=== PATIENT | female | born 1950 | race Caucasian/White ===

== ENCOUNTER → 2018-04-18 | Outpatient (CLI) | payer OTHER, BC | LOC: HYPER 06:40 | DX: E11.621 Type 2 diabetes mellitus with foot ulcer (principal); L97.521 Non-pressure chronic ulcer of other part of left foot limited to breakdown of skin; I25.10 Atherosclerotic heart disease of native coronary artery without angina pectoris; K21.9 Gastro-esophageal reflux disease without esophagitis; E11.52 Type 2 diabetes mellitus with diabetic peripheral angiopathy with gangrene; E78.5 Hyperlipidemia, unspecified; M19.90 Unspecified osteoarthritis, unspecified site; F17.200 Nicotine dependence, unspecified, uncomplicated; Z89.412 Acquired absence of left great toe; Z89.422 Acquired absence of other left toe(s); Z79.4 Long term (current) use of insulin ==

== ENCOUNTER → 2018-05-02 | Outpatient (CLI) | payer OTHER, BC | LOC: HYPER 07:04 | DX: E11.621 Type 2 diabetes mellitus with foot ulcer (principal); L97.521 Non-pressure chronic ulcer of other part of left foot limited to breakdown of skin; I25.10 Atherosclerotic heart disease of native coronary artery without angina pectoris; K21.9 Gastro-esophageal reflux disease without esophagitis; I10 Essential (primary) hypertension; E78.5 Hyperlipidemia, unspecified; E11.52 Type 2 diabetes mellitus with diabetic peripheral angiopathy with gangrene; I96 Gangrene, not elsewhere classified; M19.90 Unspecified osteoarthritis, unspecified site; F17.210 Nicotine dependence, cigarettes, uncomplicated; Z89.412 Acquired absence of left great toe; Z89.422 Acquired absence of other left toe(s); Z79.4 Long term (current) use of insulin ==

== ENCOUNTER → 2018-05-16 | Outpatient (CLI) | payer OTHER, BC | LOC: HYPER 06:44 | DX: E11.621 Type 2 diabetes mellitus with foot ulcer (principal); L97.521 Non-pressure chronic ulcer of other part of left foot limited to breakdown of skin; E11.52 Type 2 diabetes mellitus with diabetic peripheral angiopathy with gangrene; I96 Gangrene, not elsewhere classified; I10 Essential (primary) hypertension; L84 Corns and callosities; I25.10 Atherosclerotic heart disease of native coronary artery without angina pectoris; K21.9 Gastro-esophageal reflux disease without esophagitis; E78.5 Hyperlipidemia, unspecified; M19.90 Unspecified osteoarthritis, unspecified site; F17.200 Nicotine dependence, unspecified, uncomplicated; Z89.412 Acquired absence of left great toe; Z89.422 Acquired absence of other left toe(s); Z79.4 Long term (current) use of insulin; Z85.828 Personal history of other malignant neoplasm of skin ==

== ENCOUNTER → 2018-05-28 | Outpatient (CLI) | payer OTHER, BC | LOC: HYPER 07:27 | DX: E11.621 Type 2 diabetes mellitus with foot ulcer (principal); L97.521 Non-pressure chronic ulcer of other part of left foot limited to breakdown of skin; E11.52 Type 2 diabetes mellitus with diabetic peripheral angiopathy with gangrene; I96 Gangrene, not elsewhere classified; L84 Corns and callosities; I25.10 Atherosclerotic heart disease of native coronary artery without angina pectoris; E78.5 Hyperlipidemia, unspecified; K21.9 Gastro-esophageal reflux disease without esophagitis; M19.90 Unspecified osteoarthritis, unspecified site; F17.200 Nicotine dependence, unspecified, uncomplicated; Z79.4 Long term (current) use of insulin; Z89.412 Acquired absence of left great toe; Z89.422 Acquired absence of other left toe(s) ==

== ENCOUNTER → 2018-06-26 | Outpatient (CLI) | payer OTHER, BC | LOC: HYPER 07:01 | DX: E11.621 Type 2 diabetes mellitus with foot ulcer (principal); L97.521 Non-pressure chronic ulcer of other part of left foot limited to breakdown of skin; L84 Corns and callosities; I25.10 Atherosclerotic heart disease of native coronary artery without angina pectoris; K21.9 Gastro-esophageal reflux disease without esophagitis; I10 Essential (primary) hypertension; E78.5 Hyperlipidemia, unspecified; I96 Gangrene, not elsewhere classified; E11.52 Type 2 diabetes mellitus with diabetic peripheral angiopathy with gangrene; M19.90 Unspecified osteoarthritis, unspecified site; F17.210 Nicotine dependence, cigarettes, uncomplicated; Z89.412 Acquired absence of left great toe; Z89.422 Acquired absence of other left toe(s); Z79.4 Long term (current) use of insulin ==

== ENCOUNTER → 2018-07-17 | Outpatient (CLI) | payer OTHER, BC | LOC: HYPER 06:58 | DX: E11.621 Type 2 diabetes mellitus with foot ulcer (principal); L97.521 Non-pressure chronic ulcer of other part of left foot limited to breakdown of skin; E11.52 Type 2 diabetes mellitus with diabetic peripheral angiopathy with gangrene; I96 Gangrene, not elsewhere classified; I10 Essential (primary) hypertension; L84 Corns and callosities; I25.10 Atherosclerotic heart disease of native coronary artery without angina pectoris; K21.9 Gastro-esophageal reflux disease without esophagitis; E78.5 Hyperlipidemia, unspecified; M19.90 Unspecified osteoarthritis, unspecified site; F17.200 Nicotine dependence, unspecified, uncomplicated; Z89.412 Acquired absence of left great toe; Z89.422 Acquired absence of other left toe(s); Z79.4 Long term (current) use of insulin; Z79.84 Long term (current) use of oral hypoglycemic drugs ==

== ENCOUNTER → 2018-09-04 | Outpatient (CLI) | payer OTHER, BC | LOC: HYPER 06:58 | DX: E11.621 Type 2 diabetes mellitus with foot ulcer (principal); L97.521 Non-pressure chronic ulcer of other part of left foot limited to breakdown of skin; E11.52 Type 2 diabetes mellitus with diabetic peripheral angiopathy with gangrene; I96 Gangrene, not elsewhere classified; M19.90 Unspecified osteoarthritis, unspecified site; E78.5 Hyperlipidemia, unspecified; L84 Corns and callosities; I25.10 Atherosclerotic heart disease of native coronary artery without angina pectoris; K21.9 Gastro-esophageal reflux disease without esophagitis; I10 Essential (primary) hypertension; F17.200 Nicotine dependence, unspecified, uncomplicated; Z79.4 Long term (current) use of insulin; Z89.412 Acquired absence of left great toe; Z89.422 Acquired absence of other left toe(s); Z79.84 Long term (current) use of oral hypoglycemic drugs ==

== ENCOUNTER → 2018-10-02 | Outpatient (CLI) | payer OTHER, BC | LOC: HYPER 07:17 | DX: E11.621 Type 2 diabetes mellitus with foot ulcer (principal); L97.521 Non-pressure chronic ulcer of other part of left foot limited to breakdown of skin; L84 Corns and callosities; E11.52 Type 2 diabetes mellitus with diabetic peripheral angiopathy with gangrene; E78.5 Hyperlipidemia, unspecified; I25.10 Atherosclerotic heart disease of native coronary artery without angina pectoris; I10 Essential (primary) hypertension; I96 Gangrene, not elsewhere classified; K21.9 Gastro-esophageal reflux disease without esophagitis; M19.90 Unspecified osteoarthritis, unspecified site; F17.200 Nicotine dependence, unspecified, uncomplicated; Z79.84 Long term (current) use of oral hypoglycemic drugs; Z89.412 Acquired absence of left great toe; Z89.422 Acquired absence of other left toe(s); Z79.4 Long term (current) use of insulin ==

== ENCOUNTER → 2018-10-30 | Outpatient (CLI) | payer OTHER, BC | LOC: HYPER 10-29 11:03 | DX: E11.621 Type 2 diabetes mellitus with foot ulcer (principal); L97.521 Non-pressure chronic ulcer of other part of left foot limited to breakdown of skin; S90.425A Blister (nonthermal), left lesser toe(s), initial encounter; L84 Corns and callosities; E11.52 Type 2 diabetes mellitus with diabetic peripheral angiopathy with gangrene; I96 Gangrene, not elsewhere classified; E78.5 Hyperlipidemia, unspecified; I25.10 Atherosclerotic heart disease of native coronary artery without angina pectoris; I10 Essential (primary) hypertension; K21.9 Gastro-esophageal reflux disease without esophagitis; M19.90 Unspecified osteoarthritis, unspecified site; F17.200 Nicotine dependence, unspecified, uncomplicated; Z89.422 Acquired absence of other left toe(s); Z89.412 Acquired absence of left great toe; Z79.84 Long term (current) use of oral hypoglycemic drugs; Z79.4 Long term (current) use of insulin; X58.XXXA Exposure to other specified factors, initial encounter; Y93.89 Activity, other specified; Y92.89 Other specified places as the place of occurrence of the external cause; Y99.8 Other external cause status ==

== ENCOUNTER → 2018-11-21 | Outpatient (CLI) | payer OTHER, BC | LOC: HYPER 06:56 | DX: E11.621 Type 2 diabetes mellitus with foot ulcer (principal); L97.521 Non-pressure chronic ulcer of other part of left foot limited to breakdown of skin; L84 Corns and callosities; E11.52 Type 2 diabetes mellitus with diabetic peripheral angiopathy with gangrene; I96 Gangrene, not elsewhere classified; E78.5 Hyperlipidemia, unspecified; I25.10 Atherosclerotic heart disease of native coronary artery without angina pectoris; I10 Essential (primary) hypertension; K21.9 Gastro-esophageal reflux disease without esophagitis; M19.90 Unspecified osteoarthritis, unspecified site; F17.200 Nicotine dependence, unspecified, uncomplicated; Z89.422 Acquired absence of other left toe(s); Z89.412 Acquired absence of left great toe; Z79.4 Long term (current) use of insulin; Z79.84 Long term (current) use of oral hypoglycemic drugs ==

== ENCOUNTER → 2019-01-24 | Outpatient (CLI) | payer OTHER, BC | LOC: HYPER 06:56 | DX: E11.621 Type 2 diabetes mellitus with foot ulcer (principal); L97.521 Non-pressure chronic ulcer of other part of left foot limited to breakdown of skin; L84 Corns and callosities; E11.52 Type 2 diabetes mellitus with diabetic peripheral angiopathy with gangrene; I96 Gangrene, not elsewhere classified; E78.5 Hyperlipidemia, unspecified; I25.10 Atherosclerotic heart disease of native coronary artery without angina pectoris; I10 Essential (primary) hypertension; K21.9 Gastro-esophageal reflux disease without esophagitis; M19.90 Unspecified osteoarthritis, unspecified site; F17.200 Nicotine dependence, unspecified, uncomplicated; Z89.422 Acquired absence of other left toe(s); Z89.412 Acquired absence of left great toe; Z79.4 Long term (current) use of insulin; Z79.84 Long term (current) use of oral hypoglycemic drugs ==

== ENCOUNTER → 2019-02-21 | Outpatient (CLI) | payer OTHER, BC | LOC: HYPER 06:48 | DX: E11.621 Type 2 diabetes mellitus with foot ulcer (principal); L97.521 Non-pressure chronic ulcer of other part of left foot limited to breakdown of skin; L84 Corns and callosities; E11.52 Type 2 diabetes mellitus with diabetic peripheral angiopathy with gangrene; I96 Gangrene, not elsewhere classified; E78.5 Hyperlipidemia, unspecified; I25.10 Atherosclerotic heart disease of native coronary artery without angina pectoris; I10 Essential (primary) hypertension; K21.9 Gastro-esophageal reflux disease without esophagitis; M19.90 Unspecified osteoarthritis, unspecified site; F17.200 Nicotine dependence, unspecified, uncomplicated; Z89.412 Acquired absence of left great toe; Z89.422 Acquired absence of other left toe(s); Z79.4 Long term (current) use of insulin; Z79.84 Long term (current) use of oral hypoglycemic drugs ==

== ENCOUNTER → 2019-03-14 | Outpatient (CLI) | payer OTHER, BC | LOC: HYPER 06:47 | DX: E11.621 Type 2 diabetes mellitus with foot ulcer (principal); L97.521 Non-pressure chronic ulcer of other part of left foot limited to breakdown of skin; L84 Corns and callosities; E11.52 Type 2 diabetes mellitus with diabetic peripheral angiopathy with gangrene; I96 Gangrene, not elsewhere classified; E78.5 Hyperlipidemia, unspecified; I25.10 Atherosclerotic heart disease of native coronary artery without angina pectoris; I10 Essential (primary) hypertension; K21.9 Gastro-esophageal reflux disease without esophagitis; M19.90 Unspecified osteoarthritis, unspecified site; F17.200 Nicotine dependence, unspecified, uncomplicated; Z89.412 Acquired absence of left great toe; Z89.422 Acquired absence of other left toe(s); Z79.84 Long term (current) use of oral hypoglycemic drugs ==

== ENCOUNTER → 2019-04-17 | Outpatient (CLI) | payer OTHER, BC | LOC: HYPER 04-11 12:13 | DX: E11.621 Type 2 diabetes mellitus with foot ulcer (principal); L97.521 Non-pressure chronic ulcer of other part of left foot limited to breakdown of skin; L84 Corns and callosities; E11.52 Type 2 diabetes mellitus with diabetic peripheral angiopathy with gangrene; I96 Gangrene, not elsewhere classified; E78.5 Hyperlipidemia, unspecified; I25.10 Atherosclerotic heart disease of native coronary artery without angina pectoris; I10 Essential (primary) hypertension; K21.9 Gastro-esophageal reflux disease without esophagitis; M19.90 Unspecified osteoarthritis, unspecified site; F17.200 Nicotine dependence, unspecified, uncomplicated; Z89.412 Acquired absence of left great toe; Z89.422 Acquired absence of other left toe(s); Z79.84 Long term (current) use of oral hypoglycemic drugs ==

== ENCOUNTER → 2019-05-15 | Outpatient (CLI) | payer OTHER, BC | LOC: HYPER 06:48 | DX: E11.621 Type 2 diabetes mellitus with foot ulcer (principal); L97.521 Non-pressure chronic ulcer of other part of left foot limited to breakdown of skin; E11.52 Type 2 diabetes mellitus with diabetic peripheral angiopathy with gangrene; I96 Gangrene, not elsewhere classified; L84 Corns and callosities; I10 Essential (primary) hypertension; I25.10 Atherosclerotic heart disease of native coronary artery without angina pectoris; K21.9 Gastro-esophageal reflux disease without esophagitis; E78.5 Hyperlipidemia, unspecified; M19.90 Unspecified osteoarthritis, unspecified site; F17.200 Nicotine dependence, unspecified, uncomplicated; Z79.84 Long term (current) use of oral hypoglycemic drugs ==

== ENCOUNTER → 2019-06-19 | Outpatient (CLI) | payer OTHER, BC | LOC: HYPER 06:26 | DX: E11.621 Type 2 diabetes mellitus with foot ulcer (principal); L97.521 Non-pressure chronic ulcer of other part of left foot limited to breakdown of skin; L84 Corns and callosities; I25.10 Atherosclerotic heart disease of native coronary artery without angina pectoris; E11.51 Type 2 diabetes mellitus with diabetic peripheral angiopathy without gangrene; K21.9 Gastro-esophageal reflux disease without esophagitis; E78.5 Hyperlipidemia, unspecified; M19.90 Unspecified osteoarthritis, unspecified site; F17.200 Nicotine dependence, unspecified, uncomplicated; Z89.412 Acquired absence of left great toe; Z79.84 Long term (current) use of oral hypoglycemic drugs ==

== ENCOUNTER → 2019-07-10 | Outpatient (CLI) | payer OTHER, BC | LOC: HYPER 07:01 | DX: E11.621 Type 2 diabetes mellitus with foot ulcer (principal); L97.521 Non-pressure chronic ulcer of other part of left foot limited to breakdown of skin; E11.52 Type 2 diabetes mellitus with diabetic peripheral angiopathy with gangrene; I96 Gangrene, not elsewhere classified; I10 Essential (primary) hypertension; E78.5 Hyperlipidemia, unspecified; I25.10 Atherosclerotic heart disease of native coronary artery without angina pectoris; L84 Corns and callosities; K21.9 Gastro-esophageal reflux disease without esophagitis; M19.90 Unspecified osteoarthritis, unspecified site; F17.200 Nicotine dependence, unspecified, uncomplicated; Z79.84 Long term (current) use of oral hypoglycemic drugs; Z89.412 Acquired absence of left great toe; Z89.422 Acquired absence of other left toe(s) ==

== ENCOUNTER → 2019-07-31 | Outpatient (CLI) | payer OTHER, BC | LOC: HYPER 06:56 | DX: E11.621 Type 2 diabetes mellitus with foot ulcer (principal); L97.522 Non-pressure chronic ulcer of other part of left foot with fat layer exposed; E11.52 Type 2 diabetes mellitus with diabetic peripheral angiopathy with gangrene; I96 Gangrene, not elsewhere classified; L84 Corns and callosities; I10 Essential (primary) hypertension; I25.10 Atherosclerotic heart disease of native coronary artery without angina pectoris; K21.9 Gastro-esophageal reflux disease without esophagitis; E78.5 Hyperlipidemia, unspecified; M19.90 Unspecified osteoarthritis, unspecified site; F17.200 Nicotine dependence, unspecified, uncomplicated; Z89.422 Acquired absence of other left toe(s); Z79.84 Long term (current) use of oral hypoglycemic drugs ==

== ENCOUNTER → 2019-08-21 | Outpatient (CLI) | payer OTHER, BC | LOC: HYPER 06:47 | DX: E11.621 Type 2 diabetes mellitus with foot ulcer (principal); L97.521 Non-pressure chronic ulcer of other part of left foot limited to breakdown of skin; E11.40 Type 2 diabetes mellitus with diabetic neuropathy, unspecified; E11.52 Type 2 diabetes mellitus with diabetic peripheral angiopathy with gangrene; I96 Gangrene, not elsewhere classified; L84 Corns and callosities; I25.10 Atherosclerotic heart disease of native coronary artery without angina pectoris; K21.9 Gastro-esophageal reflux disease without esophagitis; I10 Essential (primary) hypertension; E78.5 Hyperlipidemia, unspecified; M19.90 Unspecified osteoarthritis, unspecified site; F17.200 Nicotine dependence, unspecified, uncomplicated; Z89.412 Acquired absence of left great toe; Z89.422 Acquired absence of other left toe(s); Z79.84 Long term (current) use of oral hypoglycemic drugs ==

== ENCOUNTER → 2019-08-30 | Outpatient (CLI) | payer OTHER, BC | LOC: ULTRA 10:22 | DX: M79.604 Pain in right leg (principal); M79.89 Other specified soft tissue disorders ==

== ENCOUNTER → 2019-09-19 | Outpatient (CLI) | payer OTHER, BC | LOC: HYPER 09-11 17:01 | DX: E11.621 Type 2 diabetes mellitus with foot ulcer (principal); L97.521 Non-pressure chronic ulcer of other part of left foot limited to breakdown of skin; E11.52 Type 2 diabetes mellitus with diabetic peripheral angiopathy with gangrene; I96 Gangrene, not elsewhere classified; L84 Corns and callosities; I25.10 Atherosclerotic heart disease of native coronary artery without angina pectoris; K21.9 Gastro-esophageal reflux disease without esophagitis; I10 Essential (primary) hypertension; E78.5 Hyperlipidemia, unspecified; M19.90 Unspecified osteoarthritis, unspecified site; Z89.412 Acquired absence of left great toe; Z79.84 Long term (current) use of oral hypoglycemic drugs; Z89.422 Acquired absence of other left toe(s); F17.200 Nicotine dependence, unspecified, uncomplicated ==

== ENCOUNTER → 2019-10-10 | Outpatient (CLI) | payer OTHER, BC | LOC: HYPER 10:00 | DX: E11.621 Type 2 diabetes mellitus with foot ulcer (principal); L97.522 Non-pressure chronic ulcer of other part of left foot with fat layer exposed; E11.52 Type 2 diabetes mellitus with diabetic peripheral angiopathy with gangrene; I96 Gangrene, not elsewhere classified; E11.51 Type 2 diabetes mellitus with diabetic peripheral angiopathy without gangrene; I10 Essential (primary) hypertension; L84 Corns and callosities; E78.5 Hyperlipidemia, unspecified; I25.10 Atherosclerotic heart disease of native coronary artery without angina pectoris; K21.9 Gastro-esophageal reflux disease without esophagitis; M19.90 Unspecified osteoarthritis, unspecified site; F17.200 Nicotine dependence, unspecified, uncomplicated; Z79.84 Long term (current) use of oral hypoglycemic drugs; Z89.412 Acquired absence of left great toe; Z89.421 Acquired absence of other right toe(s) ==

== ENCOUNTER → 2019-10-11 | Outpatient (CLI) | payer OTHER, BC | LOC: MRI 10:10 | DX: L97.522 Non-pressure chronic ulcer of other part of left foot with fat layer exposed (principal); M86.8X7 Other osteomyelitis, ankle and foot ==

== ENCOUNTER → 2019-10-31 | Outpatient (CLI) | payer OTHER, BC | LOC: HYPER 08:58 | DX: E11.621 Type 2 diabetes mellitus with foot ulcer (principal); L97.521 Non-pressure chronic ulcer of other part of left foot limited to breakdown of skin; E11.52 Type 2 diabetes mellitus with diabetic peripheral angiopathy with gangrene; I96 Gangrene, not elsewhere classified; L84 Corns and callosities; I25.10 Atherosclerotic heart disease of native coronary artery without angina pectoris; I10 Essential (primary) hypertension; E78.5 Hyperlipidemia, unspecified; K21.9 Gastro-esophageal reflux disease without esophagitis; M19.90 Unspecified osteoarthritis, unspecified site; F17.200 Nicotine dependence, unspecified, uncomplicated; Z89.412 Acquired absence of left great toe; Z79.84 Long term (current) use of oral hypoglycemic drugs; Z89.422 Acquired absence of other left toe(s) ==

== ENCOUNTER 2019-11-15 08:34 | Outpatient (CLI) | payer OTHER, BC | END 2019-11-15 12:28 | disposition home or self-care (01) | LOC: ULTRA 08:34 | DX: E11.621 Type 2 diabetes mellitus with foot ulcer (principal); L97.522 Non-pressure chronic ulcer of other part of left foot with fat layer exposed; E11.40 Type 2 diabetes mellitus with diabetic neuropathy, unspecified ==

== ENCOUNTER → 2019-12-05 | Outpatient (CLI) | payer OTHER, BC | LOC: HYPER 10:25 | DX: E11.621 Type 2 diabetes mellitus with foot ulcer (principal); L97.521 Non-pressure chronic ulcer of other part of left foot limited to breakdown of skin; E11.52 Type 2 diabetes mellitus with diabetic peripheral angiopathy with gangrene; I96 Gangrene, not elsewhere classified; L84 Corns and callosities; E11.69 Type 2 diabetes mellitus with other specified complication; E11.40 Type 2 diabetes mellitus with diabetic neuropathy, unspecified; I25.10 Atherosclerotic heart disease of native coronary artery without angina pectoris; K21.9 Gastro-esophageal reflux disease without esophagitis; I10 Essential (primary) hypertension; E78.5 Hyperlipidemia, unspecified; M19.90 Unspecified osteoarthritis, unspecified site; F17.210 Nicotine dependence, cigarettes, uncomplicated; Z79.84 Long term (current) use of oral hypoglycemic drugs; Z89.422 Acquired absence of other left toe(s); Z89.412 Acquired absence of left great toe ==

== ENCOUNTER → 2019-12-26 | Outpatient (CLI) | payer OTHER, BC | LOC: HYPER 09:13 | DX: E11.621 Type 2 diabetes mellitus with foot ulcer (principal); L97.521 Non-pressure chronic ulcer of other part of left foot limited to breakdown of skin; E11.52 Type 2 diabetes mellitus with diabetic peripheral angiopathy with gangrene; I96 Gangrene, not elsewhere classified; E11.40 Type 2 diabetes mellitus with diabetic neuropathy, unspecified; L84 Corns and callosities; E11.69 Type 2 diabetes mellitus with other specified complication; I25.10 Atherosclerotic heart disease of native coronary artery without angina pectoris; K21.9 Gastro-esophageal reflux disease without esophagitis; I10 Essential (primary) hypertension; E78.5 Hyperlipidemia, unspecified; M19.90 Unspecified osteoarthritis, unspecified site; F17.290 Nicotine dependence, other tobacco product, uncomplicated; Z79.84 Long term (current) use of oral hypoglycemic drugs; Z89.412 Acquired absence of left great toe ==

== ENCOUNTER → 2020-01-16 | Outpatient (CLI) | payer OTHER, BC | LOC: HYPER 09:16 | DX: E11.621 Type 2 diabetes mellitus with foot ulcer (principal); L97.521 Non-pressure chronic ulcer of other part of left foot limited to breakdown of skin; L84 Corns and callosities; E11.52 Type 2 diabetes mellitus with diabetic peripheral angiopathy with gangrene; I96 Gangrene, not elsewhere classified; E11.40 Type 2 diabetes mellitus with diabetic neuropathy, unspecified; I25.10 Atherosclerotic heart disease of native coronary artery without angina pectoris; K21.9 Gastro-esophageal reflux disease without esophagitis; E78.5 Hyperlipidemia, unspecified; I10 Essential (primary) hypertension; M19.90 Unspecified osteoarthritis, unspecified site; F17.290 Nicotine dependence, other tobacco product, uncomplicated; Z79.84 Long term (current) use of oral hypoglycemic drugs; Z89.412 Acquired absence of left great toe; Z89.422 Acquired absence of other left toe(s) ==

== ENCOUNTER 2020-04-02 10:41 | Inpatient (IN) | payer OTHER, BC ==
[~2020-04-02] VITALS: Ht 175.3 cm; Wt 87.5 kg
--- NOTE | ~2020-04-02 | EMS ---
[address] [address] EMS Patient Care Report Name: BERYL ESCAMILLA Room #: [facility].Cuong#: [id number] Admission: Attend Phys: Discharge: Date of : 52 Report #: [id number] THIS REPORT FOR: //name// Report Transmitted: 04/02/2020 10:15 EMS Care Summary [facility] MED-ACT Incident [id number] @ 04/02/2020 10:12 Incident Location [address] [place] [address] Patient BERYL ESCAMILLA Female, 69 Years 1950 Patient Address [address] [place] [address] Patient History Diabetes,Hypertension (HTN), Patient Allergies No known allergies, Patient Medications Metformin, Glimepiride, Chief Complaint no complaint Disposition Transported No Lights/[place] Dis[place] Reason Sick Person Transported To [facility] Narrative Arrived on scene to find a 68 year old female patient that was sitting in her living room. Patient is alert and oriented with a GCS of 15 with no complaints. [address] [address] EMS Patient Care Report Name: BERYL ESCAMILLA Room #: [facility].#: [id number] Admission: Attend Phys: Discharge: Date of : 52 Report #: [id number] A home health nurse was at the door and explained that she came and noticed that she has an infected second toe and stated " i want her transported to the hospital for further evaluation" Patient explained that she did not really want to go to the hospital and that she has no pain or complaints. the home health nurse kept encouraging the patient and said " you will receive better care in the ED". It was asked of the patient if there were other treatments that have been done prior to this, to which she said there has not been and she has been with home health for a month. Patient denies any pain, complaints or assessment of her toe and said, "I guess ill go, as long as i can get a ride back" it was explained to her that we can only transport to the hospital one way. patient consented to transport was assisted to the [facility] and placed in POC monitored en route and report was given to ED physician at bed side. Initial Vitals @10:35P: 118,R: 18,BP: 155/67,Pain: 0/10,GCS: 15,Glucose: 211,SpO2: 97,Revised Trauma: 12,NC Suspected: false @10:26P: 112,R: 18,BP: 155/86,Pain: 0/10,GCS: 15,SpO2: 97,Revised Trauma: 12, Assessments @10:20MENTAL:Person Oriented,Time Oriented,Event Oriented,Place Oriented,SKIN:HEENT:LUNG SOUNDS:ABDOMEN:PELVIS//GI:EXTREMITIES:Capillary Refill: Right Upper: < 2 Sec,Capillary Refill: Left Upper: < 2 Sec,PULSE:Radial: 2+ Normal,NEURO: Impression No Complaints or Injury/Illness Noted Timeline 10:10,Call Received 10:10,Psap Call 10:12,Dispatched 10:13,En Route 10:17,On Scene 10:18,At Patient 10:26,Depart Scene 10:26,BP: 155/86 M,PULSE: 112,RR: 18 R,SPO2: 97 Ox,ETCO2: ,BG: ,PAIN: 0,GCS: 15, 10:35,BP: 155/67 M,PULSE: 118,RR: 18 R,SPO2: 97 Ox,ETCO2: ,B,PAIN: 0,GCS: 15, 10:38,At Destination [facility] [address] [place] [address] EMS Patient Care Report Name: BERYL ESCAMILLA Valentina Room #: [facility].#: [id number] Admission: Attend Phys: Discharge: Date of : 51 Report #: [id number] 11:00,Call Closed Disclaimer v1.1 Copyright 2020 [employer] This EMS Care Summary contains data elements from the applicable legal record (which may be displayed differently). It is designed to provide pertinent information for the following purposes: continuity of care, clinical quality, and state data reporting. The complete legal record is available to ED staff and administrators of the receiving hospital in [employer]'s Patient Tracker. All data is provided "as is."
[2020-04-02 10:43] VITALS: BP 144/92
[2020-04-02 11:15] LABS: ABSOLUTE NEUTROPHILS 9.1 thou/uL (1.4-8.2); BASOPHILS 0.2 % (0.0-2.0); EOSINOPHILS 0.4 % (0.0-3.0); HEMATOCRIT 44.3 % (37.0-47.0); HEMOGLOBIN 14.8 gm/dL (12.0-15.0); MCH 31.2 pg (26.0-34.0); MCHC 33.5 g/dL (28.0-37.0); MCV 92.9 fL (80.0-100.0); MONOCYTES 5.1 % (1.0-8.0); PLATELET COUNT 288 thou/uL (150-400); POLYS 78.3 % (36.0-66.0); RBC 4.76 mil/uL (4.20-5.00); RDW 14.6 % (10.5-14.5); WBC 11.6 thou/uL (4.0-11.0)
[2020-04-02 11:28] LABS: CALCIUM 9.1 mg/dL (8.5-10.1); CREATININE 1.1 mg/dL (0.6-1.0); POTASSIUM 3.7 mmol/L (3.5-5.1)
[2020-04-02 11:34] LABS: ALBUMIN 3.2 g/dL (3.4-5.0); TOTAL BILIRUBIN 0.2 mg/dL (<0.1-1.0); TOTAL PROTEIN 7.2 g/dL (6.4-8.2)
[2020-04-02 14:33] VITALS: BP 168/89
[2020-04-02 14:40] VITALS: BP 159/101
[2020-04-02 15:32] VITALS: BP 149/79
[2020-04-02 19:45] VITALS: BP 150/67
[2020-04-03 03:40] VITALS: BP 159/68
--- NOTE | 2020-04-03 07:43 | EKG ---
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1950 Requested By: Fidencio Seay Order Number: [id number] MD: Hardik Henderson Measurements Intervals Bypro Rate: 100 P: -23 UT: 186 QRS: -22 QRSD: 95 T: 124 QT: 351 QTc: 453 Interpretive Statements Sinus tachycardia Atrial premature complexes Inferior infarct, old No previous ECG available for comparison Electronically Signed On 04-03-2020 7:41:37 CDT by Hardik Henderson [email or web address] <ELECTRONICALLY SIGNED> By: Hardik Henderson MD, FACC 04/03/20 0741 1052 1052 Hardik Henderson MD, MERGED WITH [facility] /EPI
[2020-04-03 08:00] VITALS: BP 152/73
[2020-04-03] MEDS ORDERED: ASA81BEC PO (12:22)
[2020-04-03] MEDS ORDERED: DAILY MULTIVIT1 EAC2 PO (12:23)
[2020-04-03] MEDS ORDERED: BYSTOLIC10 MG PO (12:23)
[2020-04-03] MEDS ORDERED: LIPITOR 20 MG T20 M1 PO (12:23)
[2020-04-03] MEDS ORDERED: AMARYL4 MG PO (12:24)
[2020-04-03] MEDS ORDERED: AVAPRO 150 MG150 M1 PO (12:24)
[2020-04-03] MEDS ORDERED: FUROSEMIDE 20 M20 MG PO (12:24)
[2020-04-03] MEDS ORDERED: LORAZEPAM 0.50.5 MG PO (12:25)
[2020-04-03] MEDS ORDERED: GLUCOPHAGE1000 MG PO (12:25)
[2020-04-03] MEDS ORDERED: JARDIANCE10 MG PO (12:25)
[2020-04-03] MEDS ORDERED: TRAMADOL100 MG PO (12:26)
--- NOTE | 2020-04-03 14:50 | HC ---
[facility] [place] [address] [place] [address] CONSULTATION Name: BERYL ESCAMILLA Room #: 439-P ADM IN M.R.#: [id number] Admission: 04/02/20 Attend Phys: Noah Molina MD Discharge: Date of : 51 Report #: [id number] THIS REPORT FOR: cc: OLIVIA - Family physician unknown OLIVIA - Family physician unknown Nery Cooper DPM ~ CC: [facility] unknown Noah Molina DATE OF SERVICE: 04/03/2020 HISTORY OF PRESENT ILLNESS: This is a 69-year-old diabetic female with a history of hypertension, hyperlipidemia, coronary artery disease, and dementia, who was admitted from the Emergency Room yesterday. She has an infection with necrosis of her left second toe. At her admission, she has been followed by myself, Dr. Cooper as an outpatient for the toe, and also Dr. Moshe Corbin Infectious Disease, and Dr Foster/Cordelia with the [facility] wound clinic. She has had multiple primary care physicians in the last few years. The patient is a poor historian and in the past when seen as an outpatient, I recommended amputation of the left second toe. When she represented a week later, she had forgotten this conversation. The second toe has had confirmed osteomyelitis to the distal end by MRI in the past. She has adamantly refused amputation as an outpatient in the past, although the end of toe was not necrotic in the past. Currently she denies any fever, chills, nausea, vomiting at this time. She denies any pain to the toe, but she has significant neuropathy. She is being worked up by Psychology for evaluation of dementia and decision making. For her labs, her white blood cell was mildly elevated on admission, in addition to a CRP of 16.9. Her albumin is slightly low at 3.2. Her x-ray yesterday again confirms that there is bone involvement of the distal end of the left second toe. PHYSICAL EXAMINATION: EXTREMITIES: On the left lower extremity, there is a darkened necrotic blister to left second toe, with debridement today underlying direct probing to bone and complete necrosis of the middle and distal phalanx of the left second toe. There is no abscess, fluctuance. There is no active pus. There is no malodor. There is no ascending cellulitis. There is edema overall to the entire left foot, but she has a history of Charcot. In addition, she has amputation of the left first and fifth rays. Foot is warm to touch overall, but coolness noted to the distal ends of the toes, especially the left second. Significant loss of protective sensation to bilateral lower extremities. No other breaks in the skin to [address] [address] CONSULTATION Name: BERYL ESCAMILLA Room #: 439-P [facility] IN M.R.#: [id number] Admission: 04/02/20 Attend Phys: Noah Molina MD Discharge: Date of : 51 Report #: [id number] bilateral foot or ankle. ASSESSMENT AND PLAN: A 69-year-old diabetic female with dementia and left second toe osteomyelitis and necrosis. Recommend continuing IV antibiotics per Dr. Corbin's recommendations. A deep wound culture was also obtained today at the left second distal toe after debridement of the overlying necrotic tissue. There is no abscess or fluctuance. White blood cell mildly elevated yesterday at 11.6. She has had an MRI that confirmed the bone infection in the recent past. I do recommend further vascular studies with an arterial duplex on the left lower extremity. In addition, she is currently undergoing psychiatry evaluations for competency. SW is also on board to assist. Again today at bedside, I recommended a left second toe amputation. The patient is considering but is "wanting to hold off and think about it." I reviewed with her that I will tentatively scheduling the left second toe amputation on Monday and we will give her some time, along with further workup by the physicians for competency. I did review risk of having chronic osteomyelitis and gangrene to the toe without removal of infection, it could spread and be limb/life threatening. I answered all her questions and concerns today. We will await further recommendations by the other consulted physicians, SW, and vascular work up. Recommend offloading the left foot with rest and elevation. Recommend optimizing nutrition status for best healing potential. Thank you for this consult. Nery Cooper <ELECTRONICALLY SIGNED> By: Nery Cooper DPM 04/03/20 1450 1139 1237 Nery Cooper DPM /nt
[2020-04-03 15:40] VITALS: BP 153/80
--- NOTE | 2020-04-03 19:42 | HC ---
[facility] [address] [address] CONSULTATION Name: BERYL ESCAMILLA Room #: 439-P ADM IN M.R.#: [id number] Admission: 04/02/20 Attend Phys: Noah Molina MD Discharge: Date of : 51 Report #: [id number] THIS REPORT FOR: cc: [facility] - Family physician unknown FAM - Family physician unknown Sg Bryant DO ~ CC: [facility] unknown Noah Molina DATE OF SERVICE: 04/02/2020 EMERGENCY ROOM PSYCHIATRIC CONSULTATION ATTENDING ER PHYSICIAN: Fidencio Seay MD CONSULTING PSYCHIATRIST: Sg Bryant DO REASON FOR CONSULTATION: Capacity to make higher level healthcare decisions given a left lower extremity second digit with osteonecrosis, concern for early sepsis. HISTORY OF PRESENT ILLNESS: This is a 69-year-old overweight female who presented to the ER today. The patient was initially refusing treatment for her toe, second digit of her left foot. Apparently, the patient has home health who contacted EMS. The patient herself had no complaints. Denies pain. The patient previously had amputations of the first lower extremity digit that is the big toe on her left foot due to infection after a pedicure. The patient is a smoker, smokes 10 cigarettes a day. Heart rate is in the 130s. The patient reported this is normal for her. The patient's dental claims processor is Dr. Nery Cooper, who practices at [facility]. She is also known to Dr. Michael Corbin of Infectious Disease. She has no known allergies. Full code. On interview, the patient states that it is January or February; she is able to tell me that it is and that it is 2019. When I asked her about medical complications of her toe, she states "I am not going to get it amputated." She drifts into other subject matter when I attempt to question her. SOCIAL HISTORY: Educational history: Reports bachelor's and master's degrees. 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 LABORATORY DATA: EKG showed a sinus tachycardia, rate of 100, LVH. C-reactive protein 16.9. Other labs, sodium 136, potassium 3.7, chloride 102, bicarbonate 25, anion gap 9, BUN 17, creatinine 1.1, estimated GFR 49, glucose 206. Lactic acid 1.9, calcium 9.1, total bilirubin 0.2, AST 11, ALT 19, total protein 7.2, albumin 3.2. White blood cell count 11.6, H and H of 14.8 and 44.3, platelet count 288. Blood cultures x 2 have been obtained. [address] [address] CONSULTATION Name: BERYL ESCAMILLA Room #: 439-P [facility] IN M.R.#: [id number] Admission: 04/02/20 Attend Phys: Noah Molina MD Discharge: Date of : 51 Report #: [id number] Imaging done on the foot today showed as follows, amputation of the great toe at the MTP joint. There was some possible irregularity of the medial metatarsal head, cortical bone with some possible overlying soft tissue irregularity. Large second toe shows flexion phalanges with somewhat limited detail. Basically, it was an abnormal second toe. VITAL SIGNS: Today, temperature 97.6, pulse 127, respirations 18, BP 144/92. Pulse did lower to 94, BP 161/86. PHYSICAL EXAMINATION: Disheveled overweight female, poor hygiene with apparent osteonecrotic toe, second digit on the left side. On direct questioning, the patient states she will be admitted for IV antibiotics and then she asked me if antibiotics could kill her. MENTAL STATUS EXAMINATION: This is a well-developed, as stated obese, disheveled female. Attention fair. Concentration limited. Speech is normal rate. Thought process is linear and goal oriented. Thought content focused on leaving and not getting anything done for her toe. Mood is congruent and euthymic. Really inappropriate for the severity of her illness. No psychomotor agitation. No psychomotor retardation. Denied SI or HI. Denied auditory, visual, or tactile hallucinations. Memory known to be impaired by history, but not formally tested in the ER. Insight limited. Judgment limited. Fund of knowledge below average. FORMULATION: A 69-year-old female being seen in the ER for capacity evaluation, there apparently is an incomplete list of home medications, she tells me she takes statin, she says she has a list written down, but is incomplete. Recommendations on question of general capacity, make healthcare living decisions with the patient showing poor insight into the severity of her illness, not fully oriented to time, not able to show thoughtfulness with planning and rehabilitation. I do not think she passes threshold for capacity at this time. She has a surrogate decision maker, it should be appointed and given or treated under parens patriae doctrine should be utilized to care for the patient. My recommendation would be for further psychiatric evaluation once admitted to the floor. When she has pass the inflammatory infectious response state, additional neuropsych testing would be appropriate. We will be happy to follow along with you once she is medically admitted. Dr. Annabella Kruse my colleague will be available for additional consultations on this case. [address] [address] CONSULTATION Name: BERYL ESCAMILLA Room #: 439-P ADM IN .R.#: [id number] Admission: 04/02/20 Attend Phys: Noah Molina MD Discharge: Date of : 51 Report #: [id number] Time spent on interview, review of records, coordination of care is approximately 40 minutes. My findings given to Dr. Seay. <ELECTRONICALLY SIGNED> By: Sg Bryant DO 04/03/20 1942 1343 1700 Sg Bryant DO /nt
[2020-04-03 20:06] VITALS: BP 170/69
[2020-04-04 04:35] VITALS: BP 161/70
[2020-04-04 05:17] LABS: HEMATOCRIT 42.2 % (37.0-47.0); HEMOGLOBIN 14.2 gm/dL (12.0-15.0); MCH 31.1 pg (26.0-34.0); MCHC 33.5 g/dL (28.0-37.0); MCV 92.9 fL (80.0-100.0); RBC 4.55 mil/uL (4.20-5.00); RDW 14.6 % (10.5-14.5); WBC 7.5 thou/uL (4.0-11.0)
[2020-04-04 05:35] LABS: CALCIUM 8.9 mg/dL (8.5-10.1); CREATININE 0.8 mg/dL (0.6-1.0); POTASSIUM 3.9 mmol/L (3.5-5.1)
[2020-04-04 07:40] VITALS: BP 146/75
[2020-04-04 16:14] VITALS: BP 152/95
[2020-04-04 19:45] VITALS: BP 163/79
[2020-04-05 04:00] VITALS: BP 170/87
[2020-04-05 07:19] VITALS: BP 168/60
[2020-04-05 15:07] VITALS: BP 173/61
[2020-04-05 20:00] VITALS: BP 140/53
[2020-04-06] VITALS (15 sets, daily range): BP systolic 125–182; BP diastolic 50–105
[2020-04-07] VITALS (14 sets, daily range): BP systolic 87–195; BP diastolic 61–96
--- NOTE | 2020-04-07 16:35 | HC ---
[facility] [place] [address] CONSULTATION Name: BERYL ESCAMILLA Room #: 243-P ADM IN M.R.#: [id number] Admission: 04/02/20 Attend Phys: Noah Molina MD Discharge: Date of : 51 Report #: [id number] THIS REPORT FOR: cc: FAM - Family physician unknown FAM - Family physician unknown Ba Storey MD ~ CC: [facility] unknown Noah Molina DATE OF SERVICE: 04/03/2020 CHIEF COMPLAINT: Necrotic left second toe. HISTORY OF PRESENT ILLNESS: This is a 69-year-old female patient whom we are familiar from the Wound clinic who has a history of advanced dementia and diabetes. Previous amputation of her left great toe had presented to the Emergency Room with increasing necrosis of her left second toe. She has been quite confused, is aware of the toe infection, although there is some question as to her ability to competently make decisions. She is in no distress at this time and denies any pain. She was noted to have findings on x-ray suggestive of osteomyelitis. Dr. Davis has been to see her and reportedly considering an amputation of the toe tip or the entirety of the toe. ALLERGIES: No known drug allergies. MEDICATIONS: Include Tylenol, dextrose, enoxaparin, hydrocodone, Lispro insulin, lorazepam, ondansetron, polyethylene glycol, vancomycin, Avapro, Amaryl, Lasix, Bystolic, tramadol. SOCIAL HISTORY: She is a daily smoker. No history of alcohol use. FAMILY HISTORY: Unknown. REVIEW OF SYSTEMS: Unable to be obtained due to the patient's mental status. PHYSICAL EXAMINATION: VITAL SIGNS: At this time include temperature 37.0, pulse 87, respiratory rate 16, blood pressure 153/80. GENERAL: This is a somewhat chronically ill-appearing female patient who appears to be in minimal distress. HEENT: Head normocephalic and atraumatic. NECK: Supple. LUNGS: Clear. ABDOMEN: Soft. Bowel sounds present. EXTREMITIES: Lower extremities demonstrate feet are pink and warm with good capillary refill, 2+ edema noted. She has a surgically absent left great toe [facility] [address] [place] [address] CONSULTATION Name: BERYL ESCAMILLA Room #: 243-P [facility] IN [facility]#: [id number] Admission: 04/02/20 Attend Phys: Noah Molina MD Discharge: Date of : 51 Report #: [id number] that is well healed. She has a necrotic tip to her left second toe. It is not tender was treated with dry crust and eschar present. NEUROLOGIC: The patient is alert, has diminished light touch sensation in the lower extremities. LABORATORY DATA: White blood cell count 11.6, hemoglobin 14.8. Sodium 136, potassium 3.7, chloride 102, CO2 of 25, BUN 17, creatinine 1.1, glucose 206, albumin 3.2. CLINICAL IMPRESSION: 1. Necrotic ulceration of the left second toe. 2. Diabetes with peripheral neuropathy. 3. Osteomyelitis, left second toe. RECOMMENDATIONS: At this point in time, we will recommend Betadine paint to the affected toe. We will hope to maintain this area to be dry and stable. I think she will need amputation of at least the toe tip and has been seen by Dr. Davis I think once the patient is able to consent for surgical intervention that would be the most appropriate course of action. I do not feel that there any wound care modalities that would result in healing of the toe tip at this time. Recommend continuation of current antibiotics as well as current medications. Maintain maximum nutrition to assist with wound healing and maintain ideal glycemic control, appreciate being asked to see her in consultation. <ELECTRONICALLY SIGNED> By: Ba Storey MD 04/07/20 1635 1610 1901 Ba Storey MD /nt
[2020-04-08 06:45] VITALS: BP 140/66
[2020-04-08 08:46] VITALS: BP 127/56
--- NOTE | 2020-04-08 14:55 | HC ---
[facility] [place] [place] [address] CONSULTATION Name: BERYL ESCAMILLA Room #: 462-P ADM IN .R.#: [id number] Admission: 04/02/20 Attend Phys: Noah Molina MD Discharge: Date of : 52 Report #: [id number] THIS REPORT FOR: cc: OLIVIA - Family physician unknown OLIVIA - Family physician unknown Chaim Medrano ~ CC: OLIVIA unknown Noah Molina DATE OF SERVICE: 04/07/2020 Consult was made by Dr. Mata to Dr. Cason for opinion on patient having left lower extremity arterial occlusive disease. HISTORY OF PRESENT ILLNESS: The patient was at home when Home Health came to visit on the and due to concerns of the left toe being infectious and gangrenous, they called EMS. The patient was brought to the hospital and then was admitted. PAST MEDICAL HISTORY: Peripheral artery disease, coronary artery disease, hypertension and diabetes mellitus type 2. PAST SURGICAL HISTORY: Right SFA stent, left great toe amputation. SOCIAL HISTORY: The patient lives at home in apartment. She is single, has no children. She smokes half a pack of cigarettes a day x 30 days and does not drink any alcoholic beverages. FAMILY HISTORY: Mother and father are . Mother was at age of 70s for coronary artery disease. Father was 79 for also coronary artery disease. ALLERGIES: The patient has no known allergies. MEDICATIONS: As follows: 1. Atorvastatin 40 mg at bedtime. 2. Bystolic 5 mg daily. 3. Avapro 150 mg daily. 4. Aspirin 81 mg daily. 5. Tramadol 50 mg daily. 6. Lorazepam 1 mg daily. 7. Lasix 20 mg daily. 8. Metformin 1000 mg by mouth b.i.d. meals. 9. Jardiance 10 mg daily. 10. Amaryl 4 mg daily. 11. Daily multivitamin. [facility] [address] [place] [address] CONSULTATION Name: BERYL ESCAMILLA Room #: 462-P [facility] IN [facility]#: [id number] Admission: 04/02/20 Attend Phys: Noah Molina MD Discharge: Date of : 52 Report #: [id number] REVIEW OF SYSTEMS: A 12-point review of systems completed. The patient denies any fatigue, difficulty sleeping. Denies any headache, dizziness, lightheadedness or hearing troubles. The patient denies any shortness of breath, dyspnea on exertion, orthopnea, wheezes or cough. The patient denies any chest pain, jaw pain, arm pain or murmurs. The patient denies any rashes, psoriasis or eczema. The patient does complain of cold feet. Denies any night sweats or lack of concentration. GASTROINTESTINAL: Denies nausea, vomiting, diarrhea or constipation. GENITOURINARY: Denies urinary frequency bloody urine or painful urination. NEUROLOGIC: Denies seizures or neuropathies. PSYCHIATRIC: Denies hallucinations, depression or anxiety. MUSCULOSKELETAL: Denies joint pain, stiffness or swelling. The patient denies any lupus, rheumatoid arthritis or celiac disease. PHYSICAL EXAMINATION: VITAL SIGNS: The patient is 87.6 kilograms, blood pressure is 168/84, pulse of 80, respirations 18, temperature is 36.8, O2 sat of 95%. GENERAL: The patient appears to be well-developed, well-nourished. NEUROLOGIC: Has normal speech, somewhat confused as per event and somewhat of place. The patient was confused of where she was initially, but then recalibrated to identify that she is in the hospital and is little bit confused with the timing of what is going on, particularly regarding the amputation of left second toe and also had some incidents in IR when attempting to place a stent and give the patient TPA treatment. She had an episode where security had to come down and assist in her sitting calm, so that she was not having an issue while in the procedure. EXTREMITIES: The patient's left foot is cold and mottled to the touch with demarcation to the forefoot and a gangrenous second toe with a well-healed amputation of left great toe. She had an arteriogram of aorta with runoff with Dr. Mata and impression shows left superficial femoral artery with more distal acute appearing emboli involving the left popliteal and infrapopliteal vessels. So, the patient was attempted to give TPA thrombolysis, discontinued due to the patient being combative and confused. Pulses are present, bilateral femoral as well as bilateral popliteal. The right dorsalis pedis pulse is present; however, absent to the left. LABORATORY DATA: Labs are as follows: White blood cell count 7.5, hemoglobin 14.2, hematocrit 42.2, platelets are 299. The patient was tested for COVID and was negative. ASSESSMENT AND PLAN: The patient has occlusion of left superficial femoral artery with more distal acute appearing emboli involving the left popliteal and infrapopliteal vessels. Anatomically patient could potentially have a femoral peroneal bypass. However, with the patient's psychosocial limitations and absence of family support and limitations with moving as well as [facility] [address] [place] [address] CONSULTATION Name: BERYL ESCAMILLA Room #: 462-P ADM IN Mellisa.#: [id number] Admission: 04/02/20 Attend Phys: Noah Molina MD Discharge: Date of : 52 Report #: [id number] confusion, that we will have the patient follow up with us in clinic to discuss the options in an environment that is suitable for more of a discussion. She was very confused at the bedside. The patient is not sure she wants to go through this extensive surgery for potential little gain. We would be happy having the patient followup and discuss more detail in the office. Thank you very much. <ELECTRONICALLY SIGNED> By: FELICE Stover 04/08/20 1455 1708 [id number] FELICE Stover /nt
[2020-04-08 15:04] VITALS: BP 147/68
[2020-04-08 19:44] VITALS: BP 139/49
[2020-04-09 07:17] VITALS: BP 132/62
[2020-04-09 12:04] VITALS: BP 132/62
[2020-04-09] MEDS ORDERED: DOXYCYCLINE HYC50 MG PO (13:42)
[2020-04-09 15:37] VITALS: BP 136/58
== END 2020-04-09 17:28 | disposition home health service (06) | DRG 854 ==
LOC: ER 10:41 → 4S 13:35 → EROBS 13:35 → 4S 14:40 → ICU 04-06 18:26 → 4W 04-07 19:02
PROVIDERS: Emergency Medicine; ADMIT Hospitalist
PROC: B41D1ZZ Fluoroscopy of Aorta and Bilateral Lower Extremity Arteries using Low Osmolar Contrast (ICD-10-PCS; principal; 2020-04-06)
PROC: B4181ZZ Fluoroscopy of Bilateral Renal Arteries using Low Osmolar Contrast (ICD-10-PCS; principal; 2020-04-06)
PROC: 3E05317 Introduction of Other Thrombolytic into Peripheral Artery, Percutaneous Approach (ICD-10-PCS; principal; 2020-04-06)
PROC: 04HL3DZ Insertion of Intraluminal Device into Left Femoral Artery, Percutaneous Approach (ICD-10-PCS; principal; 2020-04-06)
DX: A41.9 Sepsis, unspecified organism (principal); I96 Gangrene, not elsewhere classified; M86.8X7 Other osteomyelitis, ankle and foot; G93.40 Encephalopathy, unspecified; E11.52 Type 2 diabetes mellitus with diabetic peripheral angiopathy with gangrene; L03.032 Cellulitis of left toe; F03.90 Unspecified dementia, unspecified severity, without behavioral disturbance, psychotic disturbance, mood disturbance, and anxiety; L97.529 Non-pressure chronic ulcer of other part of left foot with unspecified severity; E11.42 Type 2 diabetes mellitus with diabetic polyneuropathy; I25.10 Atherosclerotic heart disease of native coronary artery without angina pectoris; I77.1 Stricture of artery; F17.210 Nicotine dependence, cigarettes, uncomplicated; Z60.2 Problems related to living alone; G47.00 Insomnia, unspecified; F41.9 Anxiety disorder, unspecified; E11.51 Type 2 diabetes mellitus with diabetic peripheral angiopathy without gangrene; Z20.828 Contact with and (suspected) exposure to other viral communicable diseases; E11.40 Type 2 diabetes mellitus with diabetic neuropathy, unspecified; E53.8 Deficiency of other specified B group vitamins; E11.621 Type 2 diabetes mellitus with foot ulcer; Z89.422 Acquired absence of other left toe(s); Z82.49 Family history of ischemic heart disease and other diseases of the circulatory system
CPT/HCPCS: 10040; 10047; 10078; 10102

== ENCOUNTER 2020-04-13 11:44 | Emergency (ER) | payer OTHER, BC ==
[~2020-04-13] VITALS: Ht 175.3 cm; Wt 87.5 kg
--- NOTE | ~2020-04-13 | EMS ---
[facility] [address] [place] [address] EMS Patient Care Report Name: BERYL ESCAMILLA Room #: REG ABEBE Alejo#: [id number] Admission: 04/13/20 Attend Phys: Discharge: Date of : 52 Report #: [id number] THIS REPORT FOR: //name// Report Transmitted: 04/13/2020 12:31 EMS Care Summary [facility] MED-ACT Incident [id number] @ 04/13/2020 11:06 Incident Location [address] [place] [address] Patient BERYL ESCAMILLA Female, 69 Years 1950 Patient Address [address] [place] [address] Patient History Hypertension (HTN),Smoking,Type 2 Diabetes, Patient Allergies No known allergies, Patient Medications Furosemide, Irbesartan, Metformin, Atorvastatin, Glimepiride, Chief Complaint Chest Tightness Disposition Transported No Lights/Ada Dispatch Reason Chest Pain (Non-Traumatic) Transported To [facility] Narrative M1142 dispatched C2 to pt with chest pain. M1142 arrived on scene and found pt conscious, sitting upright on her couch. Pt maintains her own patent airway, [facility] [address] [place] [address] EMS Patient Care Report Name: BERYL ESCAMILLA Room #: REG ABEBE Alejo#: [id number] Admission: 04/13/20 Attend Phys: Discharge: Date of : 52 Report #: [id number] speaking in clear and full sentences and was calm in demeanor. Pt's respirations were at adequate rate and depth with no signs of respiratory distress. Abhilash assumed pt care from E23 personnel after a verbal passdown. Pt stated that she was watching politics last evening when she began experiencing chest tightness. She denies the tightness being painful nature. She denies the tightness radiating anywhere, and denies any difficulty breathing. 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 Pt denies taking any medications to reduce the chest tightness. Pt denies any increase in tightness when her chest was palpated. Abhilash assessed the pt and collected a set of VS to include a 12 lead ECG and temp, the results of which were found as charted. Assessment showed no abnormal findings and lung sounds clear and equal bilaterally in all hitchcock. Pt ambulated with minor assistance from her couch to the cot. Pt secured to cot and loaded for transport. Second 12 lead was collected en route and found as charted. Biocom received confirmed by receiving facility. No significant change noted in pt VS, 12 lead, or CC. Upon arrival at ED pt to room 6 and moved to bed via sheet lift. Both bed rails were raised and pt report to receiving RNCuong Hung then cleared the call and returned to service. Initial Vitals @11:30P: 88,SpO2: 89,SC Suspected: false @11:20P: 89,R: 18,SpO2: 99,SC Suspected: false @11:17P: 94,R: 18,BP: 119/71,Pain: 0/10,GCS: 15,SpO2: 95,Revised Trauma: 12, @11:33P: 82,R: 18,BP: 128/75,GCS: 15,SpO2: 96,Revised Trauma: 12, @11:21P: 90,R: 18,BP: 134/75,SpO2: 96, Assessments @11:20MENTAL:Person Oriented,Time Oriented,Event Oriented,Place Oriented,SKIN:HEENT:Head/Face: No Abnormalities,Neck/Airway: No Abnormalities,LUNG SOUNDS:General: No Abnormalities,ABDOMEN:General: No Abnormalities,PELVIS//GI:No Abnormalities,EXTREMITIES:Left Arm: No Abnormalities,Right Arm: No Abnormalities,Left Leg: No Abnormalities,Right Leg: No Abnormalities,PULSE:Radial: 2+ Normal,NEURO:No Abnormalities, Impression Chest Pain / Discomfort Procedures @:2011-Lead ECGResponse: UnchangedSucceeded@11:3011-Lead ECGResponse: UnchangedSucceeded Timeline 11:04,Call Received 11:04,Psap Call [facility] [address] [place] [address] EMS Patient Care Report Name: BERYL ESC[facility]ILLA [id number] Admission: 04/13/20 Attend Phys: Discharge: Date of : 52 Report #: [id number] 11:06,Dispatched 11:07,En Route 11:14,On Scene 11:16,At Patient 11:17,BP: 119/71 M,PULSE: 94,RR: 18 R,SPO2: 95 Ox,ETCO2: ,BG: ,PAIN: 0,GCS: 15, 11:20,12-Lead ECG,Response: UnchangedSucceeded, 11:20,BP: / M,PULSE: 89,RR: 18 R,SPO2: 99 Ox,ETCO2: ,BG: ,PAIN: ,GCS: , 11:21,BP: 134/75 M,PULSE: 90,RR: 18 R,SPO2: 96 Ox,ETCO2: ,BG: ,PAIN: ,GCS: , 11:29,Depart Scene 11:30,12-Lead ECG,Response: UnchangedSucceeded, 11:30,BP: / M,PULSE: 88,RR: R,SPO2: 89 Ox,ETCO2: ,BG: ,PAIN: ,GCS: , 11:33,BP: 128/75 M,PULSE: 82,RR: 18 R,SPO2: 96 Ox,ETCO2: ,BG: ,PAIN: ,GCS: 15, 11:45,At Destination 12:03,Call Closed Disclaimer v1.1 Copyright 2020 [employer] This EMS Care Summary contains data elements from the applicable legal record (which may be displayed differently). It is designed to provide pertinent information for the following purposes: continuity of care, clinical quality, and state data reporting. The complete legal record is available to ED staff and administrators of the receiving hospital in [employer] Patient Tracker. All data is provided "as is."
[~2020-04-13 11:44] MED LIST: AMARYL4 MG PO; ASA81BEC PO; AVAPRO 150 MG150 M1 PO; BYSTOLIC10 MG PO; DAILY MULTIVIT1 EAC2 PO; DOXYCYCLINE HYC50 MG PO; FUROSEMIDE 20 M20 MG PO; GLUCOPHAGE1000 MG PO; JARDIANCE10 MG PO; LIPITOR 20 MG T20 M1 PO; LORAZEPAM 0.50.5 MG PO; TRAMADOL100 MG PO
[2020-04-13 12:01] LABS: ABSOLUTE NEUTROPHILS 8.8 thou/uL (1.4-8.2); BASOPHILS 0.4 % (0.0-2.0); EOSINOPHILS 1.2 % (0.0-3.0); HEMATOCRIT 42.1 % (37.0-47.0); LYMPHOCYTES 20.4 % (24.0-44.0); MCH 30.7 pg (26.0-34.0); MCHC 33.3 g/dL (28.0-37.0); MCV 92.1 fL (80.0-100.0); PLATELET COUNT 409 thou/uL (150-400); RBC 4.58 mil/uL (4.20-5.00); WBC 12.4 thou/uL (4.0-11.0)
[2020-04-13 12:09] LABS: ANION GAP 11 mmol/L (7-16); BUN 35 mg/dL (7-18); CALCIUM 9.3 mg/dL (8.5-10.1); CHLORIDE 99 mmol/L (98-107); CO2 28 mmol/L (21-32); CREATININE 1.3 mg/dL (0.6-1.0); GLUCOSE 86 mg/dL (74-106); POTASSIUM 3.7 mmol/L (3.5-5.1); SODIUM 138 mmol/L (136-145)
[2020-04-13 12:17] LABS: TROPONIN-I <0.06 ng/mL (<0.06)
[2020-04-13 13:51] VITALS: BP 111/50
--- NOTE | 2020-04-13 15:00 | EKG ---
[facility] [place] [address] [place] [address] ELECTROCARDIOGRAM REPORT Name: BERYL ESCAMILLA Room #: REG [facility]#: [id number] Admission: 04/13/20 Attend Phys: Discharge: Date of : 52 Report #: [id number] THIS REPORT FOR: cc: FAM - Family physician unknown FAM - Family physician unknown Tony Dawkins MD ~ THIS REPORT FOR: //name// [facility] ED Test Date: 2020-04-13 Test Time: 11:45:09 Pat Name: BERYL ESCAMILLA Department: Room: Gender: F Compliance Aide: [facility] : 1950 Requested By: Gumaro Yoon Order Number: [id number] MD: Tony Dawkins Measurements Intervals [place] Rate: 79 P: -32 KS: 150 QRS: -19 QRSD: 100 T: 21 QT: 405 QTc: 465 Interpretive Statements Sinus rhythm Probable left atrial enlargement Abnormal R-wave progression, early transition Left ventricular hypertrophy Inferior infarct, old Compared to ECG 04/02/2020 10:52:35 Electronically Signed On 04-13-2020 14:58:35 CDT by Tony Dawkins [email or web address] <ELECTRONICALLY SIGNED> By: Tony Dawkins MD 04/13/20 1458 1145 1145 Tony Dawkins MD /EPI
== END 2020-04-13 13:51 | disposition home or self-care (01) ==
LOC: ER 11:44
PROVIDERS: Emergency Medicine
DX: R07.89 Other chest pain (principal); E11.9 Type 2 diabetes mellitus without complications; Z79.899 Other long term (current) drug therapy; Z79.82 Long term (current) use of aspirin

== ENCOUNTER 2020-04-27 11:10 | Inpatient (IN) | payer OTHER, BC ==
[~2020-04-27] VITALS: Ht 175.3 cm; Wt 81.0 kg
[2020-04-27] VITALS (30 sets, daily range): BP systolic 88–124; BP diastolic 39–68
--- NOTE | ~2020-04-27 | EMS ---
[address] [address] EMS Patient Care Report Name: BERYL ESCAMILLA Room #: REG ABEBE Alejo#: [id number] Admission: 04/27/20 Attend Phys: Discharge: Date of : 52 Report #: [id number] THIS REPORT FOR: //name// Report Transmitted: 04/27/2020 11:39 EMS Care Summary [facility] MED-ACT Incident [id number] @ 04/27/2020 10:17 Incident Location [address] [place] [address] Patient BERYL ESCAMILLA Female, 69 Years 1950 Patient Address [address] [place] [address] Patient History Diabetes,Hypertension (HTN),Smoking,Type 2 Diabetes, Patient Allergies No known allergies, Patient Medications Amlodipine, Unknown, Atorvastatin, Furosemide, Glimepiride, Irbesartan, Metformin, Chief Complaint "I just feel shaky" Disposition Transported No Lights/Secretary Dispatch Reason Diabetic Problem Transported To [facility] Narrative Patient was found standing upright in entry way of apartment. Patient was [address] [address] EMS Patient Care Report Name: BERYL ESCAMILLA Room #: REG ABEBE Alejo#: [id number] Admission: 04/27/20 Attend Phys: Discharge: Date of : 52 Report #: [id number] awake, alert and oriented upon arrival. EMS noted patient was only wearing a t-shirt with no pants on. Patient had dried fecal matter on her legs and buttocks. EMS was activated to residence by the patients brother, who lives out of state. Patient did report she knew EMS would be coming, after she spoke with her brother on the phone this morning and reported she wasn't feeling well. Patient reported she told her brother on the phone that she was concerned that her blood sugar was low, but she has not checked it today or prior to arrival of EMS. Patient denies any recent cough, cold, fever, sore throat or possible exposure to Covid. Patient denies any complaint of nausea, dizziness, chest pain, difficulty breathing or any pain. Patient has no abnormality noted upon stroke assessment. Transport is offered and accepted. Destination of choice is [place]. Patient was able to stand and move to cot at front door, as there was many items and fecal matter on floor inside residence. EMS was able to locate patients purse, porras and extra clothing for her to take to the hospital. Patient was moved to ambulance for continued exam and transport. EKG and IV was attempted prior to transport. EMS was unable to establish a site for IV access prior to transport. Patient was placed into supine position on cot for transport. Patient rested comfortably for duration with no changes noted upon secondary exam. Patients blood pressure elevated slightly after being placed supine. Initial Vitals @10:45P: 93,BP: 95/63,SpO2: 94, @10:57P: 91,BP: 85/60,SpO2: 96,VA Suspected: false @11:02P: 104,R: 20,BP: 99/83,SpO2: 96,VA Suspected: false @10:53P: 94,R: 18,BP: 78/63,SpO2: 96, @10:41P: 101,BP: 87/60,SpO2: 94, @10:46P: 94,BP: 95/53,VA Suspected: false @10:29P: 106,R: 20,BP: 88/51,Pain: 0/10,GCS: 15,Temp: 98.2F,Glucose: 179,SpO2: 96,Revised Trauma: 11, Assessments @10:28MENTAL:Person Oriented,Time Oriented,Place Oriented,Event Oriented,SKIN:Pale,HEENT:Head/Face: No Abnormalities,LUNG SOUNDS:ABDOMEN:PELVIS//GI:Incontinence,EXTREMITIES:Right Leg: Edema,Left Leg: Edema,Left Arm: No Abnormalities,Right Arm: No Abnormalities,PULSE:NEURO: Impression Hypotension Procedures @10:42Saline Lock cc (22 ga) Site: Hand-RightResponse: UnchangedFailed@10:4612-Lead ECGResponse: UnchangedSucceeded@10:51Saline Lock cc (22 ga) Site: Forearm-LeftResponse: UnchangedFailed [address] [address] EMS Patient Care Report Name: BERYL ESCAMILLA Room #: [facility] ABEBE Alejo#: [id number] Admission: 04/27/20 Attend Phys: Discharge: Date of : 52 Report #: [id number] Timeline 10:15,Call Received 10:15,Psap Call 10:17,Dispatched 10:18,En Route 10:23,On Scene 10:26,At Patient 10:29,BP: 88/51 M,PULSE: 106,RR: 20 R,SPO2: 96 Ox,ETCO2: ,B,PAIN: 0,GCS: 15, 10:41,BP: 87/60 M,PULSE: 101,RR: R,SPO2: 94 Ox,ETCO2: ,BG: ,PAIN: ,GCS: , 10:42,Saline Lock cc 22 ga Site: Hand-Right,Response: UnchangedFailed, 10:45,BP: 95/63 M,PULSE: 93,RR: R,SPO2: 94 Ox,ETCO2: ,BG: ,PAIN: ,GCS: , 10:46,12-Lead ECG,Response: UnchangedSucceeded, 10:46,BP: 95/53 M,PULSE: 94,RR: R,SPO2: Ox,ETCO2: ,BG: ,PAIN: ,GCS: , 10:51,Saline Lock cc 22 ga Site: Forearm-Left,Response: UnchangedFailed, 10:53,BP: 78/63 M,PULSE: 94,RR: 18 R,SPO2: 96 Ox,ETCO2: ,BG: ,PAIN: ,GCS: , 10:54,Depart Scene 10:57,BP: 85/60 M,PULSE: 91,RR: R,SPO2: 96 Ox,ETCO2: ,BG: ,PAIN: ,GCS: , 11:02,BP: 99/83 M,PULSE: 104,RR: 20 R,SPO2: 96 Ox,ETCO2: ,BG: ,PAIN: ,GCS: , 11:04,At Destination 11:20,Call Closed Disclaimer v1.1 Copyright 2020 [employer] This EMS Care Summary contains data elements from the applicable legal record (which may be displayed differently). It is designed to provide pertinent information for the following purposes: continuity of care, clinical quality, and state data reporting. The complete legal record is available to ED staff and administrators of the receiving hospital in [employer]'s Patient Tracker. All data is provided "as is."
[2020-04-27] MEDS ORDERED: FUROSEMIDE 20 M20 MG PO (11:32)
[2020-04-27 11:52] LABS: URINE BILIRUBIN NEGATIVE (Negative); URINE BLOOD 1+ (Negative); URINE CLARITY CLOUDY; URINE COLOR YELLOW; URINE GLUCOSE-RANDOM* NEGATIVE (Negative); URINE KETONES NEGATIVE (Negative); URINE NITRITE-REFLEX NEGATIVE (Negative); URINE PROTEIN (DIPSTICK) TRACE (Negative); URINE UROBILINOGEN 0.2 E.U./dl (0.2-1.0)
[2020-04-27 11:57] LABS: URINE LEUKOCYTES-REFLEX 3+ (Negative)
[2020-04-27 12:03] LABS: ABSOLUTE NEUTROPHILS 16.7 thou/uL (1.4-8.2); BASOPHILS 0.2 % (0.0-2.0); EOSINOPHILS 0.1 % (0.0-3.0); HEMATOCRIT 45.7 % (37.0-47.0); HEMOGLOBIN 15.4 gm/dL (12.0-15.0); LYMPHOCYTES 8.1 % (24.0-44.0); MCH 30.2 pg (26.0-34.0); MCHC 33.6 g/dL (28.0-37.0); MONOCYTES 4.5 % (1.0-8.0); PLATELET COUNT 499 thou/uL (150-400); POLYS 87.1 % (36.0-66.0); RBC 5.08 mil/uL (4.20-5.00); RDW 14.4 % (10.5-14.5); WBC 19.1 thou/uL (4.0-11.0)
[2020-04-27 12:06] LABS: BACTERIA-REFLEX >30 Many /HPF (None Seen); CASTS None Seen /LPF (None Seen); CRYSTALS None Seen /LPF (None Seen); URINE WBC-REFLEX >25 Many /HPF (0-5)
[2020-04-27 12:07] LABS: SQUAMOUS 0-3 Few /LPF (0-3); URINE RBC 0-2 Rare /HPF (0-2)
[2020-04-27 12:08] LABS: WBC CLUMPS Moderate (None Seen)
[2020-04-27 12:08] LABS: CALCIUM 8.9 mg/dL (8.5-10.1)
[2020-04-27 12:18] LABS: ALBUMIN 2.8 g/dL (3.4-5.0); TOTAL BILIRUBIN 0.6 mg/dL (0.2-1.0); TOTAL PROTEIN 7.3 g/dL (6.4-8.2); TROPONIN-I 0.09 ng/mL (<0.06)
--- NOTE | 2020-04-27 16:11 | NUR ---
SPOKE TO FEDE RN IN ICU AND GAVE REPORT ON PT CURRENT/PAST CONDITION
--- NOTE | 2020-04-27 17:05 | NUR ---
REC PT FROM ED APPROX 1645, PT IS ALERT TO SELF, PRESIDENT; VERY FORGETFUL, PLEASANT. SEE SEPARATE INTERVENTIONS FOR ASSESSMENTS. SKIN ISSUES NOTED/PHOTOGRAPHED/PLACED IN CHART, ONGOING PER REPORT AND HER HX. REPORTS OF INTERMITTENT AFIB AND BACK TO NSR. WILL PRINT OUT STRIP. PT GIVEN INFO/REPEAT INFO CONTRACTING MANAGER LIGHT AND INTRO TO ROOM. DR. MONSALVE VISITING W/PT. SHE KEEPS ASKING FOR HER ANXIETY MEDICATION; WILL PERUSE/INVESTIGATE. PT CANNOT ANSWER SOME OF THE ADMISSION/PHARMACY/MED QUESTIONS. WILL CONTINUE TO MONIOR
--- NOTE | 2020-04-27 17:56 | NUR ---
PT'S BROTHER CALLED AND GAVE AN UPDATE ON PT. SHE HAD [facility] AND PT FIRED THEM, SHE ISN'T DOING HER MEDICATIONS CORRECTLY. STATES SHE DOES WALK A LITTLE BIT, NOT FOR EXERCISE, HAS NOT IDEA OF PT'S CONTINENCE STATE. HIS NUMBER IS [phone].
--- NOTE | 2020-04-27 19:11 | NUR ---
REPORTED OFF TO NIGHT RN ON PT'S ADMISSION/CONDITION.
[2020-04-28] VITALS (66 sets, daily range): BP systolic 89–139; BP diastolic 44–69
[2020-04-28 04:59] LABS: BASOPHILS 0.1 % (0.0-2.0); EOSINOPHILS 0.3 % (0.0-3.0); HEMATOCRIT 38.8 % (37.0-47.0); LYMPHOCYTES 13.9 % (24.0-44.0); MCHC 33.3 g/dL (28.0-37.0); MCV 90.3 fL (80.0-100.0); MONOCYTES 5.9 % (1.0-8.0); POLYS 79.8 % (36.0-66.0); RDW 14.1 % (10.5-14.5); WBC 13.8 thou/uL (4.0-11.0)
[2020-04-28 05:02] LABS: CALCIUM 7.6 mg/dL (8.5-10.1); CREATININE 1.3 mg/dL (0.6-1.0); MAGNESIUM 1.8 mg/dL (1.8-2.4); POTASSIUM 3.5 mmol/L (3.5-5.1)
[2020-04-28 05:09] LABS: HEMOGLOBIN 12.9 gm/dL (12.0-15.0); PLATELET COUNT 364 thou/uL (150-400)
[2020-04-28 05:13] LABS: GLYCOHEMOGLOBIN (HGB A1C) 8.9 % (4.8-5.6)
--- NOTE | 2020-04-28 05:38 | NUR ---
ASSUMED CARE `1899. PT A0X3. FORGETFUL. INCONTINENT. EXTERMAL FEMALE CATHETER IN PLACE. Q2 TURNS. DENIES CHEST PAIN, NAUSEA OR VOMITING. REPORTS LEFT LEG PAIN. NORCO AND TYLENOL PRN GIVEN. MACERATION TO BOTH HER BUTTOCKS. MIPELEX AND BARRIER CREAM APPLIED. PALSES TO L ABSENT WITH DOPPLER. WILL NO OTHER CONCERNS AT THIS TIME. WILL CONTINUE TO MONITOR.
--- NOTE | 2020-04-28 08:28 | EKG ---
[facility] [place] [address] [place] [address] ELECTROCARDIOGRAM REPORT Name: BERYL ESCAMILLA Room #: 251-P ADM IN M.R.#: [id number] Admission: 04/27/20 Attend Phys: Noah Molina MD Discharge: Date of : 52 Report #: [id number] THIS REPORT FOR: cc: FAM - Family physician unknown FAM - Family physician unknown Hardik Henderson MD [facility] ~ THIS REPORT FOR: //name// [facility] ED Test Date: 2020-04-27 Test Time: 11:22:18 Pat Name: BERYL ESCAMILLA Department: Room: 251 Gender: F Chuck Boner: EDUARDO PARIKH : 1950 Requested By: Magalis Leslie Order Number: [id number] MD: Hardik Henderson Measurements Intervals [place] Rate: 90 P: 22 [place]: 148 QRS: -5 QRSD: 110 T: 176 QT: 380 QTc: 465 Interpretive Statements Sinus rhythm Repol abnrm suggests ischemia, anterolateral Compared to ECG 04/13/2020 11:45:09 ST and T wave abnormality is more pronounced Electronically Signed On 04-28-2020 8:26:32 CDT by Hardik Henderson [email or web address] <ELECTRONICALLY SIGNED> By: Hardik Henderson MD, [facility] 04/28/20 0826 1122 1122 Hardik Henderson MD, [facility] /EPI
--- NOTE | 2020-04-28 10:40 | NUR ---
chart review. cm consulted. liz tried talk with myla, she was working with speech.
--- NOTE | 2020-04-28 17:23 | HC ---
[facility] [place] [address] CONSULTATION Name: BERYL ESCAMILLA Room #: 251-P ADM IN M.R.#: [id number] Admission: 04/27/20 Attend Phys: Noah Molina MD Discharge: Date of : 52 Report #: [id number] THIS REPORT FOR: cc: OLIVIA - Family physician unknown OLIVIA - Family physician unknown Ba Storey MD ~ CC: OLIVIA unknown Noah Molina DATE OF SERVICE: 04/28/2020 CHIEF COMPLAINT: Ischemic left lower extremity. HISTORY OF PRESENT ILLNESS: The patient is a 69-year-old female patient with a history of some level of dementia, diabetes, hypertension and significant peripheral vascular disease. She was seen and hospitalized here in the early part of 03/2020 with an ischemic and necrotic left second toe. She had noted to have severe peripheral vascular disease, but was not able to be cooperative with an angiogram, stenting was not able to be achieved, and she was additionally seen by Cardiovascular Surgery and at that time was not willing to consent to revascularization surgery nor was she willing to consent for an amputation of the second toe. The surgery offered was a femoral below knee popliteal artery bypass. She was subsequently discharged with conservative care, orders in place for trying to maintain the dry stable eschar of the second toe. She is admitted again with progressive ischemic changes of her left foot. She has been seen by Dr. Mata who has noted that there are no further percutaneous interventional options involving the left leg and has suggested that she would likely require amputation. The patient, upon my interaction with her today, notes that she is worried about her foot. She states that she is not feeling well and that her foot is uncomfortable, although is not having severe pain right now. PAST MEDICAL HISTORY: Positive for history of urinary tract infection, hyperkalemia, severe peripheral vascular disease, prior amputation of the left great toe, advanced dementia, apparently with poor judgment, insight and living in an unsanitary environment. She has a history of hypertension, diabetes, acute on chronic renal failure and moderate protein-calorie malnutrition. ALLERGIES: No known drug allergies. MEDICATIONS: Include acetaminophen, ceftriaxone, enoxaparin, hydrocodone and Tylenol, insulin, metoprolol, ondansetron, pantoprazole, glimepiride, Avapro, metformin and nebivolol. SOCIAL HISTORY: The patient smokes cigarettes, half pack per day currently. No alcohol use. [address] [address] CONSULTATION Name: BERYL ESCAMILLA Room #: 251-P [facility] IN [facility]#: [id number] Admission: 04/27/20 Attend Phys: Noah Molina MD Discharge: Date of : 51 Report #: [id number] FAMILY HISTORY: Noncontributory. REVIEW OF SYSTEMS: Really not obtainable other than what is already mentioned in the history of present illness due to the patient's level of dementia. PHYSICAL EXAMINATION: VITAL SIGNS: At this time include temperature 36.4, pulse 77, respiratory rate 12, blood pressure 89/45. GENERAL: This is a somewhat chronically ill-appearing female patient who is sitting up in a chair in the Intensive Care Unit. She appears a bit anxious and a little bit confused. HEENT: Head is normocephalic. Nose and throat clear. NECK: Supple. LUNGS: Clear. HEART: Regular rhythm. ABDOMEN: Soft. EXTREMITIES: Lower extremities demonstrate a surgically absent left great toe. She has necrotic left second toe with dry gangrene. Her foot is cool and discolored and somewhat mottled. The coolness extends to the distal one-third of her lower leg. NEUROLOGIC: Level of orientation cannot be assessed. She does move all 4 extremities spontaneously. LABORATORY DATA: White blood cell count 13.8, down from 19.1; hemoglobin is 12.9. Sodium 134, potassium 3.5, chloride 102, CO2 of 25, BUN 69, creatinine 1.3, glucose is 192, calcium is 7.6, magnesium is 1.8. Albumin is low at 2.8. CLINICAL IMPRESSION: 1. Ischemic left lower extremity. 2. Severe peripheral vascular disease, not amenable to percutaneous intervention. 3. Diabetes mellitus with hyperglycemia. 4. Dementia with poor insight and judgment. 5. Acute on chronic renal failure. 6. Moderate protein-calorie malnutrition. RECOMMENDATIONS: At this point in time, it does not appear that the left lower extremity is salvageable. Likely, she is going to require amputation at least at below knee level; however, it is conceivable that this area will not heal due to the nature of her vascular disease and she may eventually require an above-knee amputation. We will recommend a Rooke boot to the left lower extremity, although this is unlikely to preserve adequate tissue perfusion. I have advised her that I would recommend that she proceed with a higher level amputation. Orthopedics has been consulted. She appeared to understand the significance of the situation and seemed to understand the discussion of amputation and mentioned that she was worried and did not want to discuss it [facility] [address] [facility] [place] [address] CONSULTATION Name: BERYL ESCAMILLA Room #: 251-P ADM IN Mellisa.#: [id number] Admission: 04/27/20 Attend Phys: Noah Molina MD Discharge: Date of : 51 Report #: [id number] with her family in [place]. I do not specifically recommend any particular dressings. We will await further input from Orthopedics, possibly from Vascular Surgery. I appreciate being asked to see the patient in consultation. <ELECTRONICALLY SIGNED> By: Ba Storey MD 04/28/20 1723 1525 1628 Ba Storey MD /nt
--- NOTE | 2020-04-28 17:59 | NUR ---
UNABLE TO DOPPLER PULSES ON L FOOT, 2ND TOE BLACK AND FOOT COLD TO TOUCH. NO SENSATION TO SOLE OF FOOT. MINIMAL SENSATION TO TOP OF FOOT. SEEN BY DR. BHANDARI AND DR. WARD. SPOKE TO PATIENT ABOUT BKA. OPEN TO THE POSSIBILITY PER DR. WARD. XIMENA FORDSHAHANAAbdirashid ( BROTHER) CALLED BY DR. WARD WITH PATIENT'S PERMISSION AND UPDATED.
[2020-04-29] VITALS (44 sets, daily range): BP systolic 108–149; BP diastolic 50–72
[2020-04-29 05:22] LABS: CALCIUM 7.4 mg/dL (8.5-10.1); POTASSIUM 3.7 mmol/L (3.5-5.1)
--- NOTE | 2020-04-29 05:28 | NUR ---
PT ALERT AND ORIENTED BUT FORGETFUL. VSS. C/O LEFT FOOT PAIN. DENIES CHEST PAIN OR SOB. PT STATES SHE IS STILL THINKING ABOUT WHAT SHOULD DONE TO HER FOOT. PT WAS KEPT NPO SINCE 0000, JUST IN CASE SHE CONSENTS TO THE SURGERY NO OTHER C/O OVERNIGHT. DECLINES SOME Q2 TURNS. NO OTHER EVENTS OVERNIGHT. SR ON THE MONITOR. WILL CONTINUE TO MONITOR.
[2020-04-29 05:40] LABS: HEMATOCRIT 35.8 % (37.0-47.0); HEMOGLOBIN 11.8 gm/dL (12.0-15.0); MCH 30.2 pg (26.0-34.0); MCHC 33.1 g/dL (28.0-37.0); MCV 91.5 fL (80.0-100.0); RBC 3.91 mil/uL (4.20-5.00); RDW 14.2 % (10.5-14.5)
--- NOTE | 2020-04-29 07:41 | HC ---
[facility] [place] [address] [place] [address] CONSULTATION Name: BERYL ESCAMILLA Room #: 251-P ADM IN .R.#: [id number] Admission: 04/27/20 Attend Phys: Noah Molina MD Discharge: Date of : 51 Report #: [id number] THIS REPORT FOR: cc: FAM - Family physician unknown OLIVIA - Family physician unknown Gumaro Solis MD ~ CC: [facility] unknown Noah Molina DATE OF SERVICE: 04/28/2020 REQUESTING PHYSICIAN: Dr. Molina. REASON FOR CONSULTATION: Gangrene, left foot with dysvascular limb. PAST MEDICAL HISTORY: Uncontrolled diabetes, mild dementia, previous left foot osteomyelitis, peripheral vascular disease, coronary artery disease. MEDICATIONS: Currently, she is on antibiotics and she is on her home medication regimen insulin sliding scale. PAST SURGICAL HISTORY: Previous left great toe amputation, uneventful healing. SOCIAL HISTORY: The patient lives alone. She has a brother who is the durable power of regional truck driver who lives in [place]. She denies tobacco, alcohol or drug abuse. ALLERGIES: No known drug allergies. HISTORY OF PRESENT ILLNESS: The patient is a 69-year-old female with a history of peripheral vascular disease with multiple previous arterial stents placed with previous left foot osteomyelitis and underwent a great toe amputation. She was admitted to the hospital recently and underwent extensive vascular workup. She had an option of femoropopliteal bypass recommended that she declined. She has subsequently had vascular imaging demonstrating more progressive occlusive vascular disease in the left lower extremity involving the superficial femoral artery and including the popliteal vessels. The conclusion from the vascular workup was that the patient is likely to be able to heal a below-knee amputation. The general consensus among the involved physicians is that she likely has some degree of sepsis and mental status changes related to the foot infection, she was also admitted for urinary tract infection and that the clinical condition will not improve satisfactorily until she has had resolution of the left foot. She has had progressive discoloration, mottling and a loss of warmth in the foot and now has a cold, purplish-colored left foot and has minimal sensation and core motor function as well. In general, the patient has a history of poor compliance and some degree of denial regarding the severity of [address] [address] CONSULTATION Name: BERYL ESCAMILLA Valentina Room #: 251-P ADM IN [facility]#: [id number] Admission: 04/27/20 Attend Phys: Noah Molina MD Discharge: Date of : 51 Report #: [id number] her pathology. On history today, she is open to the suggestion of a definitive treatment plan and is more appreciative of the reality of the situation of irresolvable infection secondary to the lack of adequate blood flow to the left foot. PHYSICAL EXAMINATION: VITAL SIGNS: She is currently afebrile. Vital signs are stable with pulse within normal limits. GENERAL: She is alert and oriented, no acute distress. She answers questions to location and person and situation appropriately, but had some confusion regarding the details of the past medical history. EXTREMITIES: The left lower extremity has a cold foot and ankle with dry gangrene of the second toe with some exposed bone. There is no palpable pulse. The calf is warmer than the foot is and the skin is healthy appearing here with some capillary refill noted and healthy skin, tone and color. The popliteal pulse is not palpable. The right lower extremity has a warm leg and foot. I do not appreciate palpable pulses. She is able to feel and move the right foot. Bilateral upper extremities reveal no evidence of acute pathology, normal alignment grossly, normal motor and sensory function and brisk capillary refill with stable joints. LABORATORY STUDIES: Initial white blood cell count was 19, currently is 13. Sugars have been in the 200 range and downtrending since improved control with medical management. IMPRESSION: 1. Dysvascular left foot with dry gangrene of the great toe and osteomyelitis. 2. Occlusive arterial vascular disease, left lower extremity. 3. Status post previous left great toe amputation. 4. Uncontrolled diabetes. 5. Acute on chronic renal disease. 6. Dementia with likely some component of delirium. PLAN: I had a long discussion with her at bedside today, reviewed the clinical scenario and the recommendations of the other services. In general, the feeling is that she is best served with an amputation procedure, I explained this to her and she was open to that notion. She was not yet ready to make the decision to commit to amputation, so I will revisit the discussion with her in the morning. Should she choose to proceed, we would plan for below knee amputation. She was not interested in considering above-knee amputation and is willing to take the risk of insufficient wound healing. I had a lengthy discussion with the family, with her brother Terrence, who remains involved and is interested in the best outcome for her. He expressed understanding of the importance of resolution of the infection and indicated [facility] [address] [place] [address] CONSULTATION Name: BERYL ESCAMILLA Room #: 251-P [facility] IN [facility].#: [id number] Admission: 04/27/20 Attend Phys: Noah Molina MD Discharge: Date of : 51 Report #: [id number] that he would talk with her this evening to encourage her to proceed with a surgical solution. He is interested in moving her back to [facility] for her postoperative period after she has progressed through rehab and is ready to move to an assisted living type environment. Total time spent coordinating care 1 hour with greater than 50% [id number] time. <ELECTRONICALLY SIGNED> By: Gumaro Solis MD 04/29/20 0741 32 56 Gumaro Solis MD /nt
--- NOTE | 2020-04-29 07:54 | EKG ---
[facility] [place] [address] [address] [place] [address] ELECTROCARDIOGRAM REPORT Name: BERYL ESCAMILLA Room #: 251-P ADM IN M.R.#: [id number] Admission: 04/27/20 Attend Phys: Noah Molina MD Discharge: Date of : 51 Report #: [id number] THIS REPORT FOR: cc: FAM - Family physician unknown FAM - Family physician unknown Hardik Henderson MD [facility] ~ THIS REPORT FOR: //name// [facility] ED Test Date: 2020-04-27 Test Time: 13:32:17 Pat Name: BERYL ESCAMILLA Department: Room: 251 Gender: F Frame Runner: EDUARDO PARIKH : 1950 Requested By: Charli Richardson Order Number: [id number] MD: Hardik Henderson Measurements Intervals [place] Rate: 127 P: 160 [place]: 68 QRS: 12 QRSD: 91 T: 196 QT: 326 QTc: 475 Interpretive Statements Supraventricular tachycardia, possibly atrial flutter Ventricular premature complex Anterolateral infarct, age indeterminate Abnormal T, consider ischemia, lateral leads Compared to ECG 04/13/2020 11:45:09 Ventricular premature complex(es) now present Sinus rhythm is no longer present Electronically Signed On 04-29-2020 7:52:26 CDT by Hardik Henderson [email or web address] <ELECTRONICALLY SIGNED> By: Hardik Henderson MD, [facility] 04/29/20 0752 31 133 Hardik Henderson MD, [facility] /EPI
--- NOTE | 2020-04-29 09:31 | HC ---
[facility] [place] [address] [place] [address] CONSULTATION Name: BERYL ESCAMILLA Room #: 251-P [facility] IN ..#: [id number] Admission: 04/27/20 Attend Phys: Noah Mloina MD Discharge: Date of : 51 Report #: [id number] THIS REPORT FOR: cc: OLIVIA - Family physician unknown OLIVIA - Family physician unknown Loi Gutierrez MD ~ CC: OLIVIA unknown Noah Molina DATE OF SERVICE: 04/28/2020 CONSULTING PHYSICIAN: Dr. Molina. REASON FOR CONSULTATION: Uncontrolled type 2 diabetes mellitus. HISTORY OF PRESENT ILLNESS: This is a 69-year-old female patient whose medical background is significant for multiple medical issues including type 2 diabetes mellitus, hypertension, hyperlipidemia, coronary artery disease, peripheral vascular disease as well as likely dementia. The patient presented yesterday, brought by EMS who found her in highly unsanitary conditions. The patient's left foot exhibited gangrenous changes and it is worth noting that she was admitted a few weeks ago with second left toe gangrene and surrounding infection that she declined an amputation for it. Furthermore, she was demonstrated at that time to have significant arterial stenosis. Her most recent type 2 diabetes regimen consisted of glimepiride 4 mg daily, Jardiance 10 mg daily, metformin 1000 mg b.i.d. When asked specifically about how she was handling these medicines and the order in which she typically receives them every day, the patient looked completely confused and was not able to provide any such details. When asked about blood glucose monitoring, she noted that she is doing well, but again failed to provide any specific details. However, she denies issues with hypoglycemia. Also, the patient has hyperlipidemia and is maintained on atorvastatin 40 mg at bedtime. She is known to have hypertension and is maintained on irbesartan 150 mg daily as well as Bystolic 5 mg daily and furosemide 20 mg daily. The patient is not aware of issues pertaining to diabetic retinopathy or nephropathy. REVIEW OF SYSTEMS: CONSTITUTIONAL: Fatigue, tiredness, but not weight changes, fever or chills. HEENT: Negative for sore throat, sinus pain, ear drainage. PULMONARY: Occasional shortness of breath and cough, but no hemoptysis. CARDIAC: Negative for chest pain, palpitations, syncope or presyncope. GASTROINTESTINAL: Negative for abdominal pain, nausea, vomiting or changes in [facility] [address] [place] [address] CONSULTATION Name: BERYL ESCAMILLA Room #: 251-P [facility] IN [facility]#: [id number] Admission: 04/27/20 Attend Phys: Noah Molina MD Discharge: Date of : 51 Report #: [id number] bowel movement frequency. NEUROLOGY: Negative for loss of consciousness, seizure activity, frequent severe headaches. PSYCHIATRIC: Issues with forgetfulness, memory lapses. No delusions or hallucinations. Otherwise, review of systems noncontributory unless mentioned in HPI. PAST MEDICAL HISTORY: 1. Type 2 diabetes mellitus. 2. Hypertension. 3. Hyperlipidemia. 4. Coronary artery disease. 5. Peripheral vascular disease. 6. Peripheral arterial disease. 7. Atrial fibrillation. OUTPATIENT MEDICATIONS: Include aspirin 81 mg daily, atorvastatin 40 mg at bedtime, Bystolic 5 mg daily, multivitamins daily, glimepiride 4 mg daily, irbesartan 150 mg daily and empagliflozin 10 mg daily, metformin 1000 mg b.i.d., furosemide 1 tab daily. ALLERGIES: No known drug allergies. FAMILY HISTORY: Noncontributory. SOCIAL HISTORY: The patient lives alone. She denies use of tobacco, alcohol or illicit drugs. PHYSICAL EXAMINATION: GENERAL: female patient sitting upright in her chair, appears relatively comfortable, not in apparent distress. VITAL SIGNS: Blood pressure is 132/69 mmHg, heart rate is 86 beats per minute, respirations 16 per minute, temperature 36.9 degree Celsius. CONSTITUTIONAL: The patient appears comfortable, not in apparent distress. HEENT: Anicteric sclerae. Intact extraocular motions. NECK: Supple, without carotid bruits, no thyromegaly. CHEST: Noted for moderate entry bilaterally without wheezes or crackles. HEART: Regular rate and rhythm without murmurs or gallops. ABDOMEN: Soft, lax. No guarding. Active bowel sounds. EXTREMITIES: Lower extremity exam is most remarkable for extensive cellulitis changes affecting her left foot with a missing great toe and significant gangrene changes involving the second toe, cannot appreciate pedal pulses. NEUROLOGIC: Awake, alert, largely nonfocal. PSYCH: The patient had difficulties forming some answers sentences, was able to answer some of my questions. She loses her train of thought easily. [address] [address] CONSULTATION Name: BERYL ESCAMILLA Valentina Room #: 251-P [facility] IN M.R.#: [id number] Admission: 04/27/20 Attend Phys: Noah Molina MD Discharge: Date of : 51 Report #: [id number] LABORATORY RESULTS: Blood glucose on arrival was 139 followed by 204, 150 and then 236 mg/dL. Otherwise, sodium 134, potassium 3.5, chloride 102, CO2 of 25, anion gap 7, BUN 69, creatinine 1.3. Her baseline is anywhere from 0.8 to 1.3, glucose 192, total bilirubin 0.6, calcium 7.6, magnesium 1.8, alkaline phosphatase 85, ALT 29, total protein 7.3, albumin 2.8, eGFR 41. Lactic acid 1.5. Troponin negative. CRP 16.9, white blood count 13.8, hemoglobin 12.9, hematocrit 38.8, platelets 364. Hemoglobin A1c 8.9%. ASSESSMENT AND PLAN: 1. Type 2 diabetes mellitus. The patient has an uncontrolled baseline. However, I have significant doubts that her intended antidiabetic regimen might not be necessarily going in with the consistency that we hoped for. During this hospital stay, the patient has had some blood glucose fluctuations with the highest value being at 239 mg/dL. I will start Tradjenta 5 mg daily along with Humalog supplemental scale coverage and low dose Lantus insulin of 8 units daily. Further adjustments of this regimen will be pursued as we continue to monitor her blood glucose values a.c. and at bedtime. 2. Hyperlipidemia. The patient is maintained on atorvastatin therapy and tolerates it well. She is advised to continue with the same. 3. Hypertension. The patient's level of blood pressure control is adequate, she is to continue the same regimen. 4. Peripheral vascular disease. The patient has severe peripheral vascular disease with extensive gangrenous changes of her left foot. The patient is undergoing evaluation for a possible surgical intervention. I certainly appreciate this consultation by Dr. Molina. <ELECTRONICALLY SIGNED> By: Loi Gutierrez MD 04/29/20 0931 1224 [id number] MD gurpreet Dale
--- NOTE | 2020-04-29 14:09 | HC ---
[facility] [place] [address] [place] [address] CONSULTATION Name: BERYL ESCAMILLA Room #: 251-P ADM IN M.R.#: [id number] Admission: 04/27/20 Attend Phys: Noah Molina MD Discharge: Date of : 52 Report #: [id number] THIS REPORT FOR: cc: FAM - Family physician unknown FAM - Family physician unknown Kg Cason MD ~ CC: OLIVIA unknown Noah Molina DATE OF SERVICE: 04/28/2020 We were asked by Dr. Mata to see the patient. HISTORY OF PRESENT ILLNESS: The patient is known to us for peripheral arterial occlusive disease. The patient was admitted yesterday with concern about hypoglycemic reaction. According to the chart, the patient was found in unsanitary conditions. Duplex of the left lower extremity showed no discernible flow below the femoral artery. The patient has a history of lower extremity arterial occlusive disease and in early March the patient had arteriogram that showed an occluded left superficial femoral artery with some reconstitution of the below the knee popliteal artery and runoff principally through the peroneal artery. Tibial arteries although below the ankle were occluded. At that time, lower extremity bypass was offered. The patient was unable to make a decision regarding surgery and returned home until this event. PAST MEDICAL HISTORY: Significant for amputations of the left first and fifth digits. MEDICATIONS AT HOME: Includes aspirin, atorvastatin, Bystolic, glimepiride, Avapro, Jardiance, metformin and Lasix. ALLERGIES: None known. SOCIAL HISTORY: Denies alcohol use. REVIEW OF SYSTEMS: Per the Emergency Department limited due to the patient's poor memory and general poor overall condition. PHYSICAL EXAMINATION: GENERAL: The patient is sitting in a chair, seems comfortable, but not fully oriented. VITAL SIGNS: Temperature 36.9, pulse rate 77, respiratory rate 12, blood [facility] [address] [place] [address] CONSULTATION Name: BERYL ESCAMILLA Valentina Room #: 251-P [facility] IN [facility]#: [id number] Admission: 04/27/20 Attend Phys: Noah Molina MD Discharge: Date of : 51 Report #: [id number] pressure 90/45, O2 sat 100 on room air. HEENT: No icterus. No arcus. NECK: No mass. I do not hear any bruit. CHEST: Clear. HEART: Rhythm regular with occasional APC. EXTREMITIES: Left lower extremity is hyperemic. There is a second toe that has dry gangrene. First and fifth toes are missing surgically. The forefoot appears to have cellulitis. The calf itself is soft, but distally in the gaiter area, there is some tenderness. No pulses are palpable below the left femoral artery. IMPRESSION: The patient has important arterial occlusive disease in the left lower extremity (acute on chronic). Surgery had been offered in the past, but at this stage I am sure the patient will require some sort of amputation, whether it be forefoot or [id number] amputation. It may be better to simply proceed with the dxucw-[id number]-[id number] amputation and have one procedure that will heal rather than attempt low yield revascularization and then end up at the same point. The patient understands that she may lose the extremity. Thank you for the consult. <ELECTRONICALLY SIGNED> By: Kg Cason MD 04/29/20 1409 1324 1406 Kg Cason MD /nt
--- NOTE | 2020-04-29 14:48 | NUR ---
PATIENT AGREES TO AMPUTATION OF LLE. STATES SHE FEELS RELIEVED THAT SHE HAS MADE THIS DECISION. NPO AFTER MIDNIGHT.
--- NOTE | 2020-04-29 15:20 | NUR ---
Received consult to contact pt's brother, Terrence, to discuss discharge planning. SHARON reviewed chart and spoke with nursing and attending physician. Ortho consulted. Recommendation for left BKA. Pt has signed consent for surgery tomorrow. SHARON left voice message for pt's brother, Terrence ([phone]) to discuss discharge plans. Pt will need therapy evals after surgery. SHARON is following to assist as needed with discharge planning.
[2020-04-30] VITALS (26 sets, daily range): BP systolic 115–168; BP diastolic 51–109
--- NOTE | 2020-04-30 04:16 | NUR ---
PATIENT IS PROGRESSING SLOWLY IN HER CARE PLAN. VITAL SIGNS STABLE WITH PATIENT HAVING NO COMPLAINTS OF NAUSEA. PATIENT DID COMPLAIN OF PAIN IN LEFT LOWER LEG/FOOT WHICH WAS TREATED APPROPRIATELY THROUGH MEDICATIONS AND NON PHARMACOLOGICAL INTERVENTIONS. FULLY ORIENTED BUT FORGETFUL, PATIENT HAS SHOWN THE ABILITY TO CALL FOR NEEDS. NPO FROM MIDNIGHT ON IN ANTICIPATION OF TODAYS PROCEDURE. SKIN CARE WITH TURNS PROVIDED FREQUENTLY. CONTINUE PLAN OF CARE.
[2020-04-30 06:02] LABS: HEMATOCRIT 34.9 % (37.0-47.0); HEMOGLOBIN 11.6 gm/dL (12.0-15.0); MCH 30.3 pg (26.0-34.0); MCHC 33.3 g/dL (28.0-37.0); MCV 90.9 fL (80.0-100.0); RBC 3.84 mil/uL (4.20-5.00); RDW 14.4 % (10.5-14.5); WBC 12.3 thou/uL (4.0-11.0)
[2020-04-30 06:20] LABS: CALCIUM 6.9 mg/dL (8.5-10.1); CREATININE 0.9 mg/dL (0.6-1.0); POTASSIUM 3.2 mmol/L (3.5-5.1)
--- NOTE | 2020-04-30 12:02 | NUR ---
cm consult for dcp. liz spoke with bedside nurse, plan still for surgery bka today this afternoon. unable to visit with myla at this time. resting at this time. liz called her brother katie, no answer. left message requested a call back.
--- NOTE | 2020-04-30 12:10 | NUR ---
PATIENT TO OR HOLDING AREA VIA BED ACCOMPANIED BY OR STAFF. PATIENT ALERT. DOZING AT INTERVALS.
--- NOTE | 2020-04-30 14:09 | NUR ---
brother katie called back, cm visited with him, " understand she down for surgery now and i am not sure she will be able to care for her self at this. she was been wanting to move back to [facility] and so i going to start looking into als closer"/katie. education on rehab before dc home or to a AL facility. "yes she had rehab 1 time in past but don't remember where she went, i think she will agree to rehab. thank you"/brothfrancisco wilson. will cont following as needed for dc needs.
--- NOTE | 2020-04-30 16:30 | NUR ---
PATIENT RETURNED FROM PACU AT 1540 VIA BED. PATIENT REPOSITIONED FOR COMFORT. RESTLESS. C/O PAIN IN LEFT STUMP. PAIN MEDS GIVEN. LINENS CHANGED. IMMOBLIZER KNEE ON LEFT LEG NOTED. LEFT STUMP DRESSING IS C/D/I. SEE NEURO ASSESSMENT.
--- NOTE | 2020-04-30 20:19 | NUR ---
PAIN MANAGEDED WITH PAIN MEDS. ZOFRAN GIVEN FOR C/O NAUSEA AND BELCHING. PATIENT TRANSFERRED TO 209 PER BED WITH TELE PAC ON AT 1920. REPORT GIVEN TO RANDALL ROBERSON. BELONGS IN BAG TAKEN WITH PATIENT,
[2020-05-01 00:24] VITALS: BP 156/83
[2020-05-01 04:43] VITALS: BP 147/66
[2020-05-01 05:33] LABS: HEMATOCRIT 40.1 % (37.0-47.0); HEMOGLOBIN 13.3 gm/dL (12.0-15.0); MCH 29.9 pg (26.0-34.0); MCHC 33.1 g/dL (28.0-37.0); MCV 90.5 fL (80.0-100.0); RBC 4.43 mil/uL (4.20-5.00); RDW 14.5 % (10.5-14.5); WBC 21.9 thou/uL (4.0-11.0)
--- NOTE | 2020-05-01 06:40 | NUR ---
medicare snf list giving to beside staff to deliver to pt and will discuss with pt snf option
[2020-05-01 07:08] LABS: CALCIUM 7.7 mg/dL (8.5-10.1); CREATININE 0.7 mg/dL (0.6-1.0); POTASSIUM 3.6 mmol/L (3.5-5.1)
[2020-05-01 08:05] VITALS: BP 142/75
--- NOTE | 2020-05-01 08:26 | NUR ---
AQSSUME CARE 1900. PT/VITALS STABLE. CONSITENT LEFT PHANTOM PAIN NOTED. PT BLOATED AND DRYHEAVING ALL THROUGH THE NIGHT WITH ABOUT 50ML DARK BROWN EMESIS NOTED. PT IS FREQUENTLY RESTLESS AND INCOTINENET OF STOOL. SR ON MONITOR. NO DISTRESS NOTED. POOR REST NOTED THROUGH THE NIGHT. ASSESSMENT CHARTTED. PROGRESSING SLOWLY WITH POIC. PLAN IS EFFECTIVE PAIN CONTROL AND INFECTION PREVENTION. WILL CONTINUE TO MONITOR AND FOLOOW WITH POC
[2020-05-01 11:50] VITALS: BP 148/83
[2020-05-01 15:55] VITALS: BP 151/72
--- NOTE | 2020-05-01 16:45 | NUR ---
PT GIVEN SNF LIST FOR REVIEW TO REACH OUT TO PT'S BROTHER FOR ASSISTANCE WITH SELECTING POST ACUTE CARE PLACEMENT.
--- NOTE | 2020-05-01 18:17 | NUR ---
ASSESSMENT CHARTED. PT ALERT AND ORIENTED WITH FORGETFULNESS. REPORT HAVING ABD PAIN. PRN PAIN MED GIVEN WITH PARTIAL RELIEF. HAD EMESIS X4 THIS SHIFT. ONE BM THIS SHIFT. WILL CONTINUE TO MONITOR.
--- NOTE | 2020-05-01 19:51 | NUR ---
PATIENT SEEN BY DR. ROBLERO THIS DATE FOR REHAB CONSULT. RECOMMENDATION AT THIS TIME IS DISHCARGE TO SKILLED FACILTIY FOR REHAB. SOCAIL WORKER INFORMED. THANK YOU FOR THIS REFERRAL.
[2020-05-02] VITALS: BP 137/75
[2020-05-02 04:20] VITALS: BP 158/68
--- NOTE | 2020-05-02 05:03 | NUR ---
1900, PT ALERT AND ORIENTED. VSS WITH INTERMITTENT TACHYCARDIA WITH ACTIVITIES. PT HAS PERSISTENT BELCHING, NAUSEA AND VOMITING EPISODES, BROWN , BLOODY TINGED EMESIS. INHALATION THERAPIST NOTIFIED. PT REPORTS ALSO THAT SHE IS NOT PASSING GAS. BOWEL SOUNDS HYPERACTIVE. SUPP YESTERDAY WITHOUT RESULT UNTIL THIS MORNING, WHEN PT HAD SMALL SMEAR. SENNA/DOCUSATE GIVEN YESTERDAY NOC WELL. PRN PAIN MEDS. Q2 TURNS TOLERATED. WILL WATCH OUT FOR MORE EMESIS AND COLLECT SAMPLE FOR BLOOD OCCULT. NO OTHER CONCERNS. WILL FOLLOW POC.
[2020-05-02 05:59] LABS: HEMATOCRIT 37.3 % (37.0-47.0); HEMOGLOBIN 12.4 gm/dL (12.0-15.0); MCH 30.2 pg (26.0-34.0); MCHC 33.3 g/dL (28.0-37.0); MCV 90.7 fL (80.0-100.0); RBC 4.11 mil/uL (4.20-5.00); RDW 14.4 % (10.5-14.5); WBC 19.7 thou/uL (4.0-11.0)
[2020-05-02 06:08] LABS: CALCIUM 7.2 mg/dL (8.5-10.1); CREATININE 0.7 mg/dL (0.6-1.0); POTASSIUM 3.6 mmol/L (3.5-5.1)
[2020-05-02 07:50] VITALS: BP 131/68
[2020-05-02 12:10] VITALS: BP 112/65
[2020-05-02 15:15] VITALS: BP 130/64
--- NOTE | 2020-05-02 17:15 | NUR ---
ASSESSMENT CHARTED. PT ALERT AND ORIENTED WITH FORGETFULNESS. RECEIVED PRN PAIN MED FOR LEFT LEG PAIN WITH PARTIAL RELIEF. SEEN BY DR. ATWOOD, DR DE LA CRUZ AND DR. FISHER. NO NEW ORDERS. PT REPORT FEELING MUCH BETTER TODAY. PROGRESSING SLOWLY TOWARDS DISCHARGE GOAL. WILL CONTINUE TO MONITOR.
[2020-05-02 20:00] VITALS: BP 116/51
[2020-05-03] VITALS: BP 126/58
[2020-05-03 04:00] VITALS: BP 130/99
[2020-05-03 04:55] LABS: HEMATOCRIT 36.6 % (37.0-47.0); HEMOGLOBIN 11.9 gm/dL (12.0-15.0); MCH 29.8 pg (26.0-34.0); MCHC 32.6 g/dL (28.0-37.0); MCV 91.6 fL (80.0-100.0); RBC 3.99 mil/uL (4.20-5.00); RDW 14.6 % (10.5-14.5); WBC 15.2 thou/uL (4.0-11.0)
[2020-05-03 08:00] VITALS: BP 138/66
[2020-05-03 12:10] VITALS: BP 141/71
[2020-05-03 16:50] VITALS: BP 141/73
--- NOTE | 2020-05-03 19:37 | NUR ---
ASSUMED CARE AT CHANGE OF SHIFT. PT ALERT X4 C CONFUSION. PAIN MANAGED WITH PRN PAIN MEDICATIONS. DENIES SOA, LEFT STUMP DRESSING AND APPLIANCE INTACT. PT ABLE TO ADJUST SELF IN MED WITH MIN ASSISTANCE. PERSONAL ITEMS AND CALL LIGHT IN REACH.
[2020-05-03 20:18] VITALS: BP 152/82
[2020-05-04 04:56] VITALS: BP 141/81
--- NOTE | 2020-05-04 05:56 | NUR ---
ASSUMED CARE OF PATIENT AT 1900. OBSERVED PATIENT HAD PAROXYSMAL AFIB/SR THROUGHOUT DAY WELL INTERMITTENT TACHYCARDIA IN THE 110s to 130s. OBTAINED A ONE TIME ORDER FOR LOPRESSOR IV PUSH FROM NFL PLAYER. ADMINISTERED ORDERED. MEDICATION EFFECTIVE WTIH HEART RATE DECREASING TO 80s. TRANSFERRED CARE OF PATIENT TO AT APPROXIMATELY 0130.
[2020-05-04 08:10] VITALS: BP 156/97
[2020-05-04 12:00] VITALS: BP 145/66
--- NOTE | 2020-05-04 13:47 | NUR ---
Attempted to call patient in room but unavailable. Sp with brother who reports patient wants to go to facility she has been to many years ago but cannot recall facility name. Brother gave me number Lisa Cobian [phone] sp with Lisa who reports [facility] is the facility and that is were they met. She reports great rehab and atmosphere for patient. She would like to be updated if dc so she can cont to call and sp with patient. referral to [facility] for review.
--- NOTE | 2020-05-04 15:27 | NUR ---
FAXED REFERRAL TO [facility] SPOKE WITH GLENNY IN ADM SHE RECEIVED REFERRAL AND WILL ACCEPT AT DC. ANTICIPATE DC TOMORROW 05/05.
[2020-05-04 16:00] VITALS: BP 135/72
--- NOTE | 2020-05-04 17:07 | PATH ---
[facility] [address] [place] [address] PATHOLOGY RPT PROCEDURE Name: BERYL EASTON Valentina Room #: 209-P ADM IN M.R.#: [id number] Admission: 04/27/20 Date of : 52 Discharge: Report #: [id number] Path Case #: [id number] LCA Accession Number: [id number] . 01 Material submitted: . leg - LEFT BELOW THE KNEE AMPUTATION. Modifiers: left . 01 Clinical history: . Gangrene . 02 Diagnosis: Leg, left, below the knee amputation: - Skin and subcutaneous tissue showing ulceration along with gangrenous necrosis. - Anterior and posterior tibial vasculature showing calcific atherosclerosis with luminal narrowing. - Skin margin unremarkable. - Bone margin grossly viable. (IUV:moustapha; 05/04/2020) MBR 05/04/2020 1508 Local . 02 Electronically signed: . Katey Monsivais MD, Pathologist NPI- [id number] . 01 Gross description: . The specimen is received fresh in a red biohazard bag, labeled "Beryl Easton, left hzueq-mwa-fhud amputation". Received is a left eowmd-idm-ntvx amputation measuring 23.3 cm from tip of the second toe to heel, 27.2 cm from heel to skin margin, 35.9 cm from heel to tibial bone margin, and 37.9 cm from heel to fibular bone margin. The skin and soft tissue and bone margins grossly appear viable. The first and fifth toes are absent. The second toe is blackened and mummified in appearance. The third and fourth toes are pink-red to blackened in appearance. The distal half of the forefoot is pink-red, edematous in appearance and this plays a slight amount of sloughing. Several fluid-filled lesions are identified on the dorsal aspect of the foot. The anterior and posterior tibial vasculatures display patent lumens. The specimen is submitted representatively as follows: . A1 skin and soft tissue margin A2 solar sales representative sections from dorsal aspect of forefoot A3 solar sales representative section from second toe A4 solar sales representative sections from margins of anterior and posterior tibial vasculatures. (CAA; 05/01/2020) QAC/QAC 05/04/[address] [address] PATHOLOGY RPT PROCEDURE Name: BERYL EASTON Room #: 209-P ADM IN M.R.#: [id number] Admission: 04/27/20 Date of : 52 Discharge: Report #: [id number] Path Case #: [id number] . 02 Pathologist provided ICD-10: I70.262 . 02 CPT . 584134 Specimen Comment: A courtesy copy of this report has been sent to [phone] Specimen Comment: [phone] Specimen Comment: Report sent to / DR FISHER Performed at: [address], [place] [id number] MD David Nova MD Phone: [phone] Performed at: [address] [id number] MD Katey Monsivais MD Phone: [phone]
--- NOTE | 2020-05-04 17:22 | NUR ---
FAXED REFERRAL TO [facility] SPOKE WITH GLENNY IN ADM SHE RECEIVED REFERRAL AND WILL ACCEPT AT DC. DP TO FOLLOW.
--- NOTE | 2020-05-04 17:54 | NUR ---
ASSUMED CARE 0700. ALERT X3, CONFUSED/FORGETFUL. PAIN AND PHANTUM PAIN MANAGED WITH PRN MEDS. DENIES SOB, DENIES CHEST PAIN. ST/AFIB OVERNIGHT, NEW ORDER PER CARDIOLGY RATE/RHYTHM IMPROVED. INCONTINENET - EXTERNAL FEMALE CATH INPLACE. NO BM NOTED. TURN B0BCAWM TOLERATED. ELEVATED LEFT STUMP. CALLS OUT INSTEAD OF USING CALL LIGHT. STAFF TO ANTICIPATE NEEDS. PERSONAL ITEMS IN REACH. CM ATTEPTED TO REACH PT VIA PHONE IN ROOM TO NOTIFIY OF REHAB PLANS. PRIMARY NURSE NOTIFIED PT [facility] IS ACCEPTING HER FOR REHAB.
--- NOTE | 2020-05-04 18:08 | NUR ---
Pt HAD REFUSED TO PARTICIPATE IN P.T. EVAL PRIOR TO BKA SURGERY ON 04/30/20. POST OP P.T. ORDERS REQUESTED BUT NOT RECEIVED. PT HAS BEEN PERFORMING TXS W/NURSING STAFF BUT RECOMMEND NEW P.T. ORDERS FOR INITIATION OF THERAPEUTIC EX AND INITIATION OF GAIT TRAINING. PLAN IS FOR D/C TO SNF PER CM NOTES.
[2020-05-04 20:02] VITALS: BP 152/80
[2020-05-05 05:04] VITALS: BP 160/77
[2020-05-05 05:12] LABS: ABSOLUTE NEUTROPHILS 10.4 thou/uL (1.4-8.2); BASOPHILS 0.3 % (0.0-2.0); HEMATOCRIT 34.9 % (37.0-47.0); HEMOGLOBIN 11.5 gm/dL (12.0-15.0); MCH 29.8 pg (26.0-34.0); MCHC 32.9 g/dL (28.0-37.0); MCV 90.6 fL (80.0-100.0); MONOCYTES 6.3 % (1.0-8.0); PLATELET COUNT 255 thou/uL (150-400); POLYS 80.4 % (36.0-66.0); RBC 3.85 mil/uL (4.20-5.00); RDW 14.6 % (10.5-14.5); WBC 12.9 thou/uL (4.0-11.0)
--- NOTE | 2020-05-05 05:56 | NUR ---
ASSUMED CARE OF PATIENT AT 1900. PATIENT CONTINUES TO REPORT PAIN AROUND 7/10 IN LEFT BKA. ADMINISTERED PRN PAIN MEDICATION ORDERED. UPON REASSESSMENT, PATIENT REPORTED MINIMAL RELIEF. PATIENT CALLED APPROPRIATELY FOR HELP. NO SUSTAINED TACHYCARDIA NOTED THROUGH NOC. WILL CONTINUE TO MONITOR.
[2020-05-05 07:45] VITALS: BP 123/76
--- NOTE | 2020-05-05 08:39 | EKG ---
[facility] [address] [facility] [place] [address] ELECTROCARDIOGRAM REPORT Name: BERYL ESCAMILLA Room #: 209-P ADM IN M.R.#: [id number] Admission: 04/27/20 Attend Phys: Noah Molina MD Discharge: Date of : 52 Report #: [id number] THIS REPORT FOR: cc: FAM - Family physician unknown FAM - Family physician unknown Hardik Henderson MD [facility] ~ THIS REPORT FOR: //name// [facility] Test Date: 2020-05-04 Test Time: 10:17:39 Pat Name: BERYL ESCAMILLA Department: Room: 209 P Gender: F Tire Design Engineer: MARQUITA : 1950 Requested By: Isabel Rodriguez Order Number: [id number] MD: Hardik Henderson Measurements Intervals [place] Rate: 90 P: SD: QRS: -14 QRSD: 103 T: 41 QT: 336 QTc: 411 Interpretive Statements Multifocal atrial tachycardia Nonspecific ST and T wave abnormality No previous ECGs available for comparison Electronically Signed On 05-05-2020 8:38:21 CDT by Hardik Henderson [email or web address] <ELECTRONICALLY SIGNED> By: Hardik Henderson MD, [facility] 05/05/20 0838 1017 1017 Hardik Henderson MD, [facility] /EPI
--- NOTE | 2020-05-05 10:35 | NUR ---
spoke with patient who is agreeable to referral to [facility] for post acute care.
[2020-05-05 11:45] VITALS: BP 115/65
[2020-05-05] MEDS ORDERED: NICOTINE TRANSD14 M1 TRANSDERM (14:57)
[2020-05-05] MEDS ORDERED: METOPROLOL SUCC50 MG PO (14:58)
[2020-05-05] MEDS ORDERED: GABAPENTIN 100100 MG PO (14:58)
[2020-05-05] MEDS ORDERED: HYDROCODON-ACE1 EAC7 PO (14:59)
[2020-05-05] MEDS ORDERED: PROTONIX40 M1 PO (14:59)
[2020-05-05] MEDS ORDERED: GLUCOPHAGE XR750 MG PO (15:00)
[2020-05-05] MEDS ORDERED: TRADJENTA5 MG PO (15:00)
[2020-05-05] MEDS ORDERED: B-12500 MCG PO (15:01)
--- NOTE | 2020-05-05 15:09 | NUR ---
Patient to dc to [facility] today. Updated son and friend. DPOA faxed to unit and requested to be placed in chart copy. Mailed copy to brother who is DPOA. DC planner internship to fax and finalize transport no further needs
--- NOTE | 2020-05-05 15:16 | NUR ---
PT DISCHARGING TODAY TO [facility] RECEIVED CONFIRMATION SPOKE WITH GLENNY IN ADM SHE RECEIVED ORDERS AND ARRANGED TRANSPORT BY [facility] FOR 1630. ALSO FAXED DPOA PAPERS TO FACILITY. UNIT NOTIFIED AND CHART COPY PER US RN TO CALL REPORT TO [phone].
--- NOTE | 2020-05-05 17:04 | NUR ---
ASSUMED CARE PT SHIFT CHANGE. ASSESSMENTS CHARTED BY THIS NURSE AND NURSE ORIENTEE KAROL BROWNING. PT ALERT AND ORIENTED.VSS. C/O PAIN IN LEFT LEG--MANAGED WITH PO PAIN MEDS. WOUND CARE DONE PER ORDERS. DC ORDERS ACKNOWLEDGED AND IMPLEMETNED. REPORT CALLED TO [facility]. IV REMOVED. TELE REMOVED. PT LEFT WITH ALL BELONGINGS.
--- NOTE | 2020-05-06 07:31 | O ---
[facility] [place] [address] [place] [address] OPERATIVE REPORT Name: BERYL ESCAMILLA Room #: 209-P [facility] IN M.R.#: [id number] Admission: 04/27/20 Attend Phys: Noah Molina MD Discharge: 05/05/20 Date of : 52 Report #: [id number] THIS REPORT FOR: cc: FAM - Family physician unknown FAM - Family physician unknown Gumaro Solis MD ~ CC: OLIVIA unknown Noah Molina DATE OF SERVICE: 04/30/2020 SERVICE: Orthopedics. FACILITY: [facility]. SURGEON: Gumaro Solis MD LAND MANAGEMENT FORESTER: Mandy Carrillo NP. PREOPERATIVE DIAGNOSES: 1. Gangrene of the left foot. 2. Severe peripheral vascular disease. 3. Occlusive vascular disease, left lower extremity. 4. Sepsis. POSTOPERATIVE DIAGNOSES: 1. Gangrene of the left foot. 2. Severe peripheral vascular disease. 3. Occlusive vascular disease, left lower extremity. 4. Sepsis. PROCEDURE: Left below-knee amputation. COMPLICATIONS: None. DRAINS: None. SPECIMENS: Left leg. FINDINGS: Bleeding at the skin edges and wound with viable muscle. HISTORY: The patient is a 69-year-old female with history of peripheral vascular disease that was quite severe. She has history of first toe amputation on the left foot that had healed, and then she developed a second toe necrotic ulcer that progressed to the point of gangrene of the toe with exposed bone. She was in the hospital a month ago and had discussion about revascularization [facility] [place] [address] [address] OPERATIVE REPORT Name: BERYL ESCAMILLA Room #: 209-P [facility] IN M.R.#: [id number] Admission: 04/27/20 Attend Phys: Noah Molina MD Discharge: 05/05/20 Date of : 52 Report #: [id number] procedure which was offered to her, but she declined. She subsequently developed worsening occlusive vascular disease and was no longer a candidate for a revascularization procedure. She was admitted to the ICU with sepsis and was ultimately felt to be a candidate only for an amputation procedure due to the severity of the infection. She initially wished to avoid the surgery, but then considered her options and elected to proceed with the surgery. We discussed this with her on several occasions and she told multiple physician providers that she was in favor of the surgery, which was explained to be a below-knee amputation. We offered above-knee amputation as an option as well with a higher likelihood of successful wound healing and fewer complications, with the added morbidity of lesser likelihood of becoming ambulatory with the prosthesis with the AKA. She declined AKA strongly, but was open to below-knee amputation after the consideration of her arterial disease and severity of her infection were discussed with her in great detail. All of her questions were answered, and we discussed surgical treatment once more preoperatively on the day of surgery and she wished to proceed. Risks, benefits, alternatives and indications for the surgery were therefore reviewed during these conversations. The risks include but are not limited to pain, bleeding, infection, wound breakdown, recurrence of the complication, need for further surgery including higher level amputation, disability from amputation, as well as complications related to anesthesia up to and including . PROCEDURE IN DETAIL: After the left lower extremity was correctly identified in the preoperative holding as the operative extremity, the patient was taken to the operating room where general anesthesia was induced without complication. Tourniquet was applied to the left leg. Left lower extremity was prepped and draped in standard sterile fashion. Timeout procedure was performed. She received her appropriate dosing of antibiotics before the surgery. A standard incision was drawn over the leg with the posterior soft tissue flap and then a skin incision was made. There was some bleeding at the skin edges, although it was not profuse, but all of the muscle that was evaluated was contractile on stimulation with the Bovie. Dissection was taken down to the tibia which was exposed, and then the tibia was transected with the saw and then it was bevelled anteriorly. We continued dissection laterally and posteriorly, and then exposed the fibula and transected the fibula just proximal to the level of the tibia. Hemostasis was achieved during the exposure and the vessels were ligated. When we got to the posterior musculature, her muscle did demonstrate a reasonable amount of bleeding and, in order to minimize blood loss, we elevated the tourniquet which was up for approximately 19 minutes, and then transected the soft tissues posteriorly and ligated the arterial and venous bundle posteriorly. The tibial nerve was transected sharply and allowed to retract, and then we let the tourniquet down and confirmed adequate hemostasis. Some muscle debulking was then performed, and then the fascia was closed over the tibia with 0-Vicryl sutures under minimal tension and then the skin was closed with 2-0 Vicryl, followed by skin yves. Sterile dressing was applied and the knee was placed [address] [address] OPERATIVE REPORT Name: BERYL ESCAMILLA Room #: 209-P [facility] IN Mellisa.#: [id number] Admission: 04/27/20 Attend Phys: Noah Molina MD Discharge: 05/05/20 Date of : 52 Report #: [id number] in a knee immobilizer. The patient was awakened from anesthesia and taken to recovery room in stable condition. No complications. All counts were correct. <ELECTRONICALLY SIGNED> By: Gumaro Solis MD 05/06/20 0731 25 55 Gumaro Solis MD /nt
[2020-05-06] MEDS ORDERED: JANUVIA 50 MG T50 MG PO (14:11)
--- NOTE | 2020-05-12 10:28 | HC ---
[facility] [place] [address] [place] [address] CONSULTATION Name: BERYL ESCAMILLA Room #: 209-P [facility] IN ..#: [id number] Admission: 04/27/20 Attend Phys: Noah Molina MD Discharge: 05/05/20 Date of : 52 Report #: [id number] THIS REPORT FOR: cc: [facility] - Family physician unknown FAM - Family physician unknown Steven Soto MD ~ CC: OLIVIA unknown Noah Molina DATE OF SERVICE: 05/01/2020 HISTORY OF PRESENT ILLNESS: The patient is a 69-year-old white female admitted with sepsis of the left cold foot with dry gangrene. She was noted to have severe peripheral vascular disease of the left lower extremity and evidence of some osteomyelitis, left distal second phalanx. She underwent a left below-knee amputation on 04/30/2020. We are seeing her in rehabilitation medicine consultation. PAST MEDICAL HISTORY: Includes diabetes mellitus, hypertension, dementia, elevated lipids, coronary artery disease. HABITS: Tobacco one-half pack per day. ALLERGIES: No known drug allergies. MEDICATIONS: Please see the full medication listing. SOCIAL HISTORY: Lives in an apartment alone, has a walker and a cane, first floor, no steps. There is a brother, Terrence that is involved, but she lives in [place]. The patient was noted to be admitted with an unkempt condition. No other support in the area. REVIEW OF SYSTEMS: Did not offer any current complaints of chest pain, shortness of breath or abdominal discomfort. PHYSICAL EXAMINATION: GENERAL: A 69-year-old white female in no obvious distress. VITAL SIGNS: Last recorded temperature 98, pulse 106, respirations 18, blood pressure 142/75. NEUROLOGIC: The patient is alert. She has some latency to her responses. She will follow basic 1 step commands. HEENT: Facies are symmetric. EXTREMITIES: She has functional range of motion of both upper extremities. Strength is a grade 3+/5. DTRs are trace to 1. In her lower extremities, right lower extremity functional range of motion, strength is grade 4- to 3+/5. Left lower extremity is dressed post below knee amputation. [facility] [address] [place] [address] CONSULTATION Name: BERYL ESCAMILLA Room #: 209-P [facility]#: [id number] Admission: 04/27/20 Attend Phys: Noah Molina MD Discharge: 05/05/20 Date of : 52 Report #: [id number] ASSESSMENT: A 69-year-old white female with the following problem list: 1. Left below-knee amputation on 04/30/2020. 2. Sepsis. 3. Peripheral vascular disease, left lower extremity. 4. Dementia. 5. Diabetes mellitus. 6. Hypertension. 7. Urinary tract infection. 8. Tobacco abuse. PLAN: Therapy evaluations are underway. We will need to see how she does as far as her functional independence. Hopefully, some of her cognition will clear as well with the amputation. Speech therapy did see her and noted severe memory with ofwsxiaj-mo-hjlfpx cognitive deficits. She has limited social support here in the [place] area, but does have a brother in [place]. At this point, we will be glad to follow along with you regarding her rehab therapy needs and see how she does in therapies. <ELECTRONICALLY SIGNED> By: Steven Soto MD 05/12/20 1028 1045 1420 Steven Soto MD /nt
== END 2020-05-05 17:08 | DRG 853 ==
LOC: ER 11:10 → ICU 13:16 → EROBS 13:16 → ICU 16:25 → 2N 04-30 20:00
PROVIDERS: Emergency Medicine; Nurse Practitioner; Nurse Practitioner Family; Orthopaedic Surgery Sports Medicine; Specialist; ADMIT Hospitalist; ATTEND Hospitalist
PROC: 0Y6J0Z3 Detachment at Left Lower Leg, Low, Open Approach (ICD-10-PCS; principal; 2020-04-30)
DX: A41.9 Sepsis, unspecified organism (principal); N17.0 Acute kidney failure with tubular necrosis; I70.262 Atherosclerosis of native arteries of extremities with gangrene, left leg; L03.90 Cellulitis, unspecified; G93.40 Encephalopathy, unspecified; E11.52 Type 2 diabetes mellitus with diabetic peripheral angiopathy with gangrene; N39.0 Urinary tract infection, site not specified; M86.9 Osteomyelitis, unspecified; E44.0 Moderate protein-calorie malnutrition; K59.00 Constipation, unspecified; Z79.899 Other long term (current) drug therapy; Z79.82 Long term (current) use of aspirin; E78.5 Hyperlipidemia, unspecified; I25.10 Atherosclerotic heart disease of native coronary artery without angina pectoris; F17.210 Nicotine dependence, cigarettes, uncomplicated; E87.5 Hyperkalemia; E11.69 Type 2 diabetes mellitus with other specified complication; F03.90 Unspecified dementia, unspecified severity, without behavioral disturbance, psychotic disturbance, mood disturbance, and anxiety; N18.9 Chronic kidney disease, unspecified; E11.22 Type 2 diabetes mellitus with diabetic chronic kidney disease; I77.9 Disorder of arteries and arterioles, unspecified; E11.65 Type 2 diabetes mellitus with hyperglycemia; I12.9 Hypertensive chronic kidney disease with stage 1 through stage 4 chronic kidney disease, or unspecified chronic kidney disease; I48.0 Paroxysmal atrial fibrillation; I99.8 Other disorder of circulatory system; E53.8 Deficiency of other specified B group vitamins; B96.20 Unspecified Escherichia coli [E. coli] as the cause of diseases classified elsewhere; Z20.828 Contact with and (suspected) exposure to other viral communicable diseases; I77.1 Stricture of artery; Z68.26 Body mass index [BMI] 26.0-26.9, adult; Z89.422 Acquired absence of other left toe(s); Z89.412 Acquired absence of left great toe; Z79.4 Long term (current) use of insulin
CPT/HCPCS: 10078; 10081; 10203; 10204; 50010; 50101; 50149; 50386; 50932; 51412; 51771; 56524; 56528; 57091; 57180; 62110; 62900; 70005

== ENCOUNTER 2020-05-20 10:39 | Inpatient (IN) | payer OTHER, BC ==
[~2020-05-20] VITALS: Ht 175.3 cm; Wt 77.6 kg
--- NOTE | ~2020-05-20 | EMS ---
[facility] [address] [place] [address] EMS Patient Care Report Name: BERYL ESCAMILLA Room #: REG ABEBE Alejo#: [id number] Admission: 05/20/20 Attend Phys: Discharge: Date of : 52 Report #: [id number] THIS REPORT FOR: //name// Report Transmitted: 05/20/2020 11:51 EMS Care Summary [facility] MED-ACT Incident [id number] @ 05/20/2020 09:53 Incident Location [address] [place] [address] Patient BERYL ESCAMILLA Female, 69 Years 1950 Patient Address [address] [place] [address] Patient History Diabetes,Hypertension (HTN),Smoking,Type 2 Diabetes, Patient Allergies No known allergies, Patient Medications Glimepiride, Irbesartan, Amlodipine, Furosemide, Atorvastatin, Unknown, Metformin, Chief Complaint Vomiting blood Disposition Transported No Lights/Felda Dispatch Reason Hemorrhage/Laceration Transported To [facility] Narrative Aysha Walden's staff report the pt has vomited twice this morning. She says [address] [address] EMS Patient Care Report Name: BERYL ESCAMILLA Room #: REG ABEBE Alejo#: [id number] Admission: 05/20/20 Attend Phys: Discharge: Date of : 52 Report #: [id number] the vomit has blood blots, bright red blood, and coffee ground like substance. Pt is at for rehab after a left left amputation. Pt is found laying supine in her room. She is AOx3 and appears in no obvious distress. Pt denies any pain, nausea, or diarrhea at this time. She reports that she feels pretty normal. Vitals and assessment. Moved pt from the bed to the cot and secured with straps. Transported to [facility] at pt request. Placed pt in ER with RN at side and report given. Initial Vitals @10:16P: 100,R: 16,BP: 113/64,SpO2: 97, @10:01P: 105,R: 16,BP: 129/73,Pain: 0/10,GCS: 15,SpO2: 97,Revised Trauma: 12, @10:24P: 96,R: 16,BP: 125/60,Pain: 0/10,GCS: 15,Glucose: 341,SpO2: 97,Revised Trauma: 12, Assessments @10:01MENTAL:Person Oriented,Time Oriented,Event Oriented,Place Oriented,SKIN:HEENT:Neck/Airway: No Abnormalities,LUNG SOUNDS:General: Vomiting,ABDOMEN:General: Vomiting,PELVIS//GI:EXTREMITIES:Left Leg: Other,Capillary Refill: Right Upper: < 2 Sec,Left Arm: No Abnormalities,Right Arm: No Abnormalities,Right Leg: No Abnormalities,PULSE:Radial: 2+ Normal,NEURO: Impression Gastrointestinal hemorrhage Timeline :52,Call Received :,Psap Call 09:53,Dispatched 09:54,En Route 09:57,On Scene 10:00,At Patient 10:01,BP: 129/73 M,PULSE: 105,RR: 16 R,SPO2: 97 Ox,ETCO2: ,BG: ,PAIN: 0,GCS: 15, 10:08,Depart Scene 10:16,BP: 113/64 M,PULSE: 100,RR: 16 R,SPO2: 97 Ox,ETCO2: ,BG: ,PAIN: ,GCS: , 10:24,BP: 125/60 M,PULSE: 96,RR: 16 R,SPO2: 97 Ox,ETCO2: ,B,PAIN: 0,GCS: 15, 10:35,At Destination 10:45,Call Closed Disclaimer v1.1 Copyright 2020 [employer] This EMS Care Summary contains data elements from the applicable legal record (which may be displayed differently). It is designed to provide pertinent [address] [address] EMS Patient Care Report Name: BERYL ESCAMILLA Room #: REG [facility]#: [id number] Admission: 05/20/20 Attend Phys: Discharge: Date of : 52 Report #: [id number] information for the following purposes: continuity of care, clinical quality, and state data reporting. The complete legal record is available to ED staff and administrators of the receiving hospital in [employer]'s Patient Tracker. All data is provided "as is."
[~2020-05-20 10:39] MED LIST changes: +B-12500 MCG PO; +GABAPENTIN 100100 MG PO; +GLUCOPHAGE XR750 MG PO; +HYDROCODON-ACE1 EAC7 PO; +JANUVIA 50 MG T50 MG PO; +METOPROLOL SUCC50 MG PO; +NICOTINE TRANSD14 M1 TRANSDERM; +PROTONIX40 M1 PO; +TRADJENTA5 MG PO
[2020-05-20 10:41] VITALS: BP 125/71
[2020-05-20 11:33] LABS: ABSOLUTE NEUTROPHILS 7.4 thou/uL (1.4-8.2); BASOPHILS 0.5 % (0.0-2.0); EOSINOPHILS 1.3 % (0.0-3.0); HEMATOCRIT 33.4 % (37.0-47.0); LYMPHOCYTES 24.5 % (24.0-44.0); MCH 30.5 pg (26.0-34.0); MCHC 32.8 g/dL (28.0-37.0); MONOCYTES 7.8 % (1.0-8.0); PLATELET COUNT 506 thou/uL (150-400); POLYS 65.9 % (36.0-66.0); RBC 3.59 mil/uL (4.20-5.00); RDW 16.2 % (10.5-14.5); WBC 11.2 thou/uL (4.0-11.0)
[2020-05-20 11:36] LABS: ANION GAP 7 mmol/L (7-16); BUN 31 mg/dL (7-18); CALCIUM 9.5 mg/dL (8.5-10.1); CHLORIDE 100 mmol/L (98-107); CO2 27 mmol/L (21-32); CREATININE 0.9 mg/dL (0.6-1.0); GLUCOSE 308 mg/dL (74-106); POTASSIUM 4.3 mmol/L (3.5-5.1); SODIUM 134 mmol/L (136-145)
[2020-05-20 11:46] LABS: APTT 25.8 Seconds (24.5-32.8); INR 1.1; PROTIME 11.4 Seconds (9.3-11.4)
[2020-05-20 11:47] LABS: ALBUMIN 2.3 g/dL (3.4-5.0); DIRECT BILIRUBIN < 0.1 mg/dL (<0.1-0.2); SGOT 16 U/L (15-37); SGPT 27 U/L (30-65); TOTAL BILIRUBIN 0.3 mg/dL (0.2-1.0); TROPONIN-I 0.06 ng/mL (<0.06)
--- NOTE | 2020-05-20 15:47 | EKG ---
[facility] [address] [place] [address] ELECTROCARDIOGRAM REPORT Name: BERYL ESCAMILLA Room #: 170-8 ADM IN M.R.#: [id number] Admission: 05/20/20 Attend Phys: Sg Morales MD Discharge: Date of : 52 Report #: [id number] THIS REPORT FOR: cc: FAM - Family physician unknown FAM - Family physician unknown Tony Dawkins MD ~ THIS REPORT FOR: //name// [facility] ED Test Date: 2020-05-20 Test Time: 11:37:35 Pat Name: BERYL ESCAMILLA Department: Room: 170 Gender: F House Officer: ARUN : 1950 Requested By: Charli Richardson Order Number: [id number] MD: Tony Dawkins Measurements Intervals [place] Rate: 108 P: -15 MN: 153 QRS: -20 QRSD: 90 T: 76 QT: 344 QTc: 461 Interpretive Statements Sinus tachycardia with irregular rate Left ventricular hypertrophy Anterior Q waves, possibly due to LVH Nonspecific T abnormalities, lateral leads Compared to ECG 05/04/2020 10:17:39 Electronically Signed On 05-20-2020 15:46:27 CDT by Tony Dawkins [email or web address] <ELECTRONICALLY SIGNED> By: Tony Dawkins MD 05/20/20 1546 1137 1137 Tony Dawkins MD /EPI
[2020-05-20 22:26] VITALS: BP 128/63
[2020-05-20 22:35] VITALS: BP 136/71
[2020-05-20 23:00] VITALS: BP 122/58
--- NOTE | 2020-05-21 01:29 | NUR ---
PT ARRIVED AT THE UNIT VIA CART AROUND 2250, PT IS ALERT AND ORIENTED, SR ON THE MONITOR, VSS, MEDICATIONS GIVEN ORDERED, DENIES NAUSEA AND VOMITING, ADMISSION ASSESSMENT CHARTED, PT REMAINED NPO AFTER MIDNIGHT, BS STABLE, SLEEPING AT THIS TIME, NO DISTRESS NOTED, WILL CONTINUE TO MONITOR
[2020-05-21 03:40] VITALS: BP 122/58
[2020-05-21 03:50] VITALS: BP 130/64
[2020-05-21 05:26] LABS: CALCIUM 8.6 mg/dL (8.5-10.1); CREATININE 0.8 mg/dL (0.6-1.0); MAGNESIUM 1.5 mg/dL (1.8-2.4); POTASSIUM 4.1 mmol/L (3.5-5.1)
[2020-05-21 05:47] LABS: BASOPHILS 0.4 % (0.0-2.0); EOSINOPHILS 1.3 % (0.0-3.0); HEMATOCRIT 29.8 % (37.0-47.0); HEMOGLOBIN 9.8 gm/dL (12.0-15.0); LYMPHOCYTES 19.5 % (24.0-44.0); MCH 30.8 pg (26.0-34.0); MCV 93.5 fL (80.0-100.0); MONOCYTES 6.9 % (1.0-8.0); POLYS 71.9 % (36.0-66.0); RBC 3.19 mil/uL (4.20-5.00); WBC 12.5 thou/uL (4.0-11.0)
[2020-05-21 05:59] LABS: PLATELET COUNT 409 thou/uL (150-400)
--- NOTE | 2020-05-21 07:36 | EKG ---
[facility] [place] [address] ELECTROCARDIOGRAM REPORT Name: BERYL ESCAMILLA Room #: 206-P ADM IN M.R.#: [id number] Admission: 05/20/20 Attend Phys: Sg Morales MD Discharge: Date of : 52 Report #: [id number] THIS REPORT FOR: cc: FAM - Family physician unknown FAM - Family physician unknown Hardik Henderson MD [facility] THIS REPORT FOR: //name// [facility] ED Test Date: 2020-05-20 Test Time: 11:42:00 Pat Name: BERYL ESCAMILLA Department: Room: 206 Gender: F Professor Of Voice: ARUN : 1950 Requested By: Charli Richardson Order Number: [id number] MD: Hardik Henderson Measurements Intervals Marcell Rate: 104 P: 24 NE: 156 QRS: -17 QRSD: 82 T: 79 QT: 351 QTc: 462 Interpretive Statements Sinus tachycardia Atrial premature complex Left ventricular hypertrophy Compared to ECG 05/20/2020 11:37:35 Atrial premature complex(es) now present Electronically Signed On 05-21-2020 7:35:49 CDT by Hardik Henderson [email or web address] <ELECTRONICALLY SIGNED> By: Hardik Henderson MD, [facility] 05/21/20 0735 1142 1142 Hardik Henderson MD, [facility] /EPI
[2020-05-21 08:10] VITALS: BP 131/85
[2020-05-21 12:40] VITALS: BP 130/57
[2020-05-21 16:00] VITALS: BP 150/59
--- NOTE | 2020-05-21 19:40 | NUR ---
ASSUMED CARE OF PATIENT AT 0700. ASSESSMENTS COMPLETED. PATIENT NPO UNTIL EGD AROUND 1400. PATIENT ATE A SANDWICH BOX AFTER THE EGD WITHOUT ANY DIFFICULTY. ZOFRAN GIVEN FOR NAUSEA, NO VOMITING. UNKNOWN DATE OF LAST BM. ACCUCHECKS PERFORMED AC&HS, NO COVERAGE USED TODAY. RIGHT AC INFILTRATED, NEW IV STARTED IN LT AC. PATIENT TO CONTINUE WITH POC.
[2020-05-21 20:30] VITALS: BP 126/47
--- NOTE | 2020-05-22 04:21 | NUR ---
ASSESSMENT DOCUMENTED.PT BEEN RESTING IN NO ACUTE DISTRESS.A/OX2-3 W/FORGETFULNESS.FOLLOWS COMMANDS APPROPRIATELY.VSS..PT DENIES PAIN OR ANY CONCERNS.WILL CONT TO MONITOR PER POC.
[2020-05-22 04:45] VITALS: BP 140/58
[2020-05-22 05:38] LABS: CALCIUM 8.1 mg/dL (8.5-10.1); CREATININE 0.9 mg/dL (0.6-1.0)
[2020-05-22 05:47] LABS: HEMATOCRIT 26.9 % (37.0-47.0); HEMOGLOBIN 8.9 gm/dL (12.0-15.0); MCH 30.9 pg (26.0-34.0); MCHC 33.2 g/dL (28.0-37.0); MCV 93.1 fL (80.0-100.0); RBC 2.89 mil/uL (4.20-5.00); RDW 15.4 % (10.5-14.5)
[2020-05-22 07:15] VITALS: BP 148/63
[2020-05-22] MEDS ORDERED: PROTONIX40 M1 PO (10:15)
[2020-05-22 11:57] VITALS: BP 131/80
--- NOTE | 2020-05-22 14:40 | NUR ---
INITIAL ASSESSMENT/DISCHARGE NOTE: SW reviewed chart and spoke with nursing and attending physician. Pt was admitted from [facility] due to upper GI bleed. Pt had EGD yesterday, and is medically stable to discharge today. SW met with pt at bedside. Introduced role of SW. Pt with hx of dementia and recent left BKA. Pt's brother, Terrence, is her DPOA. SW spoke with Terrence via phone to provide update and notify of discharge plan. Pt is agreeable with discharge. retail planner to facilitate discharge. Chart copy requested. No additional SW needs identified at this time, but is available to assist should needs arise.
--- NOTE | 2020-05-22 15:28 | NUR ---
PT DISCHARGING TODAY TO [facility] FAXED DC ORDERS/SUMMARY TO FACILITY SPOKE WITH HEIDI IN ADM HE RECEIVED ORDERS AND ARRANGED TRANSPORT BY [facility] FOR [phone] PT'S SON NOTIFIED BY BRIE (SHARON) OF DC AND TIME OF TRANSPORT. UNIT NOTIFIED AND CHART COPY PER US. RN TO CALL REPORT TO [phone].
--- NOTE | 2020-05-22 17:33 | NUR ---
PT DISCHARGED VIA VAN.
--- NOTE | 2020-05-26 12:07 | PATH ---
[facility] [address] [place] [address] PATHOLOGY RPT PROCEDURE Name: BERYL ESCAMILLA Room #: 206-P DIS IN M.R.#: [id number] Admission: 05/20/20 Date of : 52 Discharge: 05/22/20 Report #: [id number] Path Case #: [id number] LCA Accession Number: [id number] . 01 Material submitted: . esophagus - BIOPSY OF ESOPHAGUS R/O GARCIA'S . 01 Clinical history: . Upper GI bleed, coffee-ground emesis, N/V, R/O Garcia's . 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 - Negative for dysplasia. - Squamous mucosa with mild esophagitis. (IUV:moustapha; 05/25/2020) MBR 05/25/2020 1635 Local . 02 Comment: The above diagnosis of Garcia's esophagus is made due to presence of intestinal metaplasia and with the assumption that the biopsies were obtained from the columnar mucosa in the distal esophagus located at least 1 cm proximal to the top of the gastric folds as per the 2016 ACG guidelines. (IUV:electrolysist; 05/25/2020) . 02 Electronically signed: . Katey Monsivais MD, Pathologist NPI- [id number] . 01 Gross description: . The specimen is received in formalin, labeled "Beryl Serranomarti, biopsy of esophagus, R/O Garcia's". Received are three segments of pale meadows soft tissue ranging in size from 0.3 to 0.8 cm in maximum dimensions. The specimen is submitted entirely in cassette A1. (CAA; 05/22/2020) QA/QA 05/22/2020 1036 Local . 02 Pathologist provided ICD-10: K20.9 . 02 CPT . 830731 Specimen Comment: A courtesy copy of this report has been sent to [phone] Specimen Comment: [phone] [address] PATHOLOGY RPT PROCEDURE Name: BERYL ESCAMILLA Room #: 206-P DIS IN M.R.#: [id number] Admission: 05/20/20 Date of : 52 Discharge: 05/22/20 Report #: [id number] Path Case #: [id number] Specimen Comment: Report sent to / DR VARGAS Performed at: [address], [place], [place] [id number] MD David Nova MD Phone: [phone] Performed at: [address] [id number] MD Katey Monsivais MD Phone: [phone]
== END 2020-05-22 17:15 | DRG 380 ==
LOC: ER 10:39 → 2N 12:31 → EROBS 12:31 → 2N 22:37
PROVIDERS: Emergency Medicine; Nurse Practitioner; ADMIT Hospitalist; ATTEND Hospitalist
PROC: 0DB38ZX Excision of Lower Esophagus, Via Natural or Artificial Opening Endoscopic, Diagnostic (ICD-10-PCS; principal; 2020-05-21)
DX: K22.11 Ulcer of esophagus with bleeding (principal); E43 Unspecified severe protein-calorie malnutrition; G93.41 Metabolic encephalopathy; D62 Acute posthemorrhagic anemia; E44.0 Moderate protein-calorie malnutrition; I10 Essential (primary) hypertension; F41.9 Anxiety disorder, unspecified; Z20.828 Contact with and (suspected) exposure to other viral communicable diseases; F03.90 Unspecified dementia, unspecified severity, without behavioral disturbance, psychotic disturbance, mood disturbance, and anxiety; E11.51 Type 2 diabetes mellitus with diabetic peripheral angiopathy without gangrene; E83.42 Hypomagnesemia; G47.00 Insomnia, unspecified; K44.9 Diaphragmatic hernia without obstruction or gangrene; I25.10 Atherosclerotic heart disease of native coronary artery without angina pectoris; I48.0 Paroxysmal atrial fibrillation; Z79.01 Long term (current) use of anticoagulants; Z68.25 Body mass index [BMI] 25.0-25.9, adult
CPT/HCPCS: 10081; 62110; 62900; 70005

== ENCOUNTER 2020-05-28 14:00 | Inpatient (IN) | payer OTHER, BC ==
[~2020-05-28] VITALS: Ht 175.3 cm; Wt 86.7 kg
--- NOTE | ~2020-05-28 | O ---
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 PROCEDURE PERFORMED: Left below-knee amputation revision, irrigation and debridement. SURGEON: Tank Aguila MD EARLY CHILDHOOD LEAD TEACHER: Magi Moreno PA-C. ANESTHESIA: General. FLUIDS: 400 mL crystalloid. ESTIMATED BLOOD LOSS: Approximately 10 mL. DESCRIPTION OF PROCEDURE: After proper identification of the patient and operative site in preoperative holding area, the operative site was signed by myself. The patient has been on antibiotics. The patient previously has had a below-knee amputation by my partner, Dr. Gumaro Solis. The patient came into the office yesterday with separation dehiscence of the wound as well as drainage. She has had recent hospitalization as well and was admitted for revision of amputation and I and D. We reviewed the risks, benefits, alternatives and potential complications and the potential for persistent infection and the lack of healing that may require further revision at a higher level. The patient was brought back to the operative suite after induction of satisfactory general anesthesia, the remaining yves that were in place were removed. There were multiple areas where the wound had and dehisced. There was some fibrinous/purulent debris coming from multiple areas around the wound and the skin edges were erythematous with areas of what appeared to be nonviable tissue. This was sterilely prepped and draped in the usual manner. A tourniquet had been applied to the upper thigh. The limb was elevated and exsanguinated by gravity, tourniquet was inflated. The wound edges were debrided sharply. The previous subcutaneus and myofascial sutures were removed in their entirety. Fibrinous/purulent debris covered the posterior flap and the [address] [address] OPERATIVE REPORT Name: BERYL ESCAMILLA Room #: 463-P [facility]#: [id number] Admission: 05/28/20 Attend Phys: Jennifer Perez Discharge: Date of : 52 Report #: [id number] tissues. There did not appear to be any deep pockets of fluid or abscess. The myocutaneous flap was then debrided sharply of all devitalized tissue on both the anterior and posterior segments back to more healthy appearing punctate bleeding tissues and antibiotic pulsatile lavage was used on the low setting to thoroughly irrigate these tissues. Once the bone itself, bone edges were debrided with a curette, but the bone itself was not shortened and again there appeared to be no tracking of infection deeper. After this had been thoroughly debrided and irrigated, a Bruno drain was placed through the apex of the flaps and this was closed with Monocryl, 2-0 Monocryl and then 2-0 nylon in an interrupted fashion. Sterile dressing was applied. She was placed within her stump protective device that previously had been applied. Awakened and transferred to the recovery room in stable condition. By: 1449 1516 Tank Aguila MD /nt
[2020-05-28 14:04] VITALS: BP 111/60
[2020-05-28 15:52] LABS: ABSOLUTE NEUTROPHILS 8.2 thou/uL (1.4-8.2); BASOPHILS 0.4 % (0.0-2.0); EOSINOPHILS 2.2 % (0.0-3.0); HEMATOCRIT 31.2 % (37.0-47.0); HEMOGLOBIN 10.1 gm/dL (12.0-15.0); LYMPHOCYTES 22.7 % (24.0-44.0); MCH 30.6 pg (26.0-34.0); MCHC 32.5 g/dL (28.0-37.0); MCV 94.3 fL (80.0-100.0); MONOCYTES 7.2 % (1.0-8.0); PLATELET COUNT 401 thou/uL (150-400); POLYS 67.5 % (36.0-66.0); RBC 3.31 mil/uL (4.20-5.00); RDW 16.4 % (10.5-14.5); WBC 12.2 thou/uL (4.0-11.0)
[2020-05-28 15:56] LABS: ANION GAP 9 mmol/L (7-16); BUN 21 mg/dL (7-18); CALCIUM 9.3 mg/dL (8.5-10.1); CHLORIDE 103 mmol/L (98-107); CO2 25 mmol/L (21-32); CREATININE 0.9 mg/dL (0.6-1.0); GLUCOSE 206 mg/dL (74-106); POTASSIUM 3.8 mmol/L (3.5-5.1); SODIUM 137 mmol/L (136-145)
[2020-05-28 16:01] LABS: ALBUMIN 2.5 g/dL (3.4-5.0); DIRECT BILIRUBIN < 0.1 mg/dL (<0.1-0.2); SGOT 12 U/L (15-37); SGPT 17 U/L (30-65); TOTAL BILIRUBIN 0.3 mg/dL (0.2-1.0); TOTAL PROTEIN 6.6 g/dL (6.4-8.2)
--- NOTE | 2020-05-28 18:44 | NUR ---
ATTEMPTED TO CALL REPORT BUT WAS TOLD RN IS GIVING HUDDLE TO THE OTHER NURSES
[2020-05-28 18:56] VITALS: BP 148/74
[2020-05-28 20:15] VITALS: BP 127/59
[2020-05-29] VITALS (8 sets, daily range): BP systolic 111–148; BP diastolic 58–78
--- NOTE | 2020-05-29 07:59 | NUR ---
admit pt admitted to room 463 via er for left stump infection. vss, a/o x4 up ad karma to w/c denies pain. accucheck and ssi given oriented to room call light and poc. continue to monitor.
--- NOTE | 2020-05-29 18:19 | NUR ---
Assumed pt care at 7am.Assessment completed.Pt was worried about going to surgery today.Emotional support given.Pt kept npo till leaving for surgery at 1300 per bed and returned to floor at 1539 in stable conditon.Morphine sulfate ivp given with relief.Sugical drsg to left stump c/d/i.Will continue to monitor.
[2020-05-30 03:59] VITALS: BP 127/66
--- NOTE | 2020-05-30 06:24 | NUR ---
PROGRESS PT A/O X3 BUT GETS CONFUSED AT TIMES. PT IS PLEASANT AND COOPREATIVE. RATING PAIN AN 8 MORPHINE 2 MG IVP GIVEN X2 AND HYDROCODONE X2 WITH EFFECT PT'S PAIN DOWN TO A 5. SURGICAL DRSG C/D/I. IVF'S AND IV ANTIBIOTICS CONTINUE. PT VOIDS INFREQUENTLY STATES THATS HER NORMAL WAS INCONTINENT X 1 LAST NIGHT OF A LARGE AMOUNT OF URINE. CONTINUE POC.
[2020-05-30 08:29] VITALS: BP 137/67
--- NOTE | 2020-05-30 11:45 | NUR ---
Received awake on bed. Due medications given as prescribed, able to swallow meds w/o difficulty. On room air. On blood sugar monitoring-taken and recorded accordingly; with sliding scale insulin ordered- given as prescribed. Incontinent of bowel and bladder- checked frequently and changed as needed. With L BKA- dressing C/D/I- pt seen by ortho PA today. With D5NS at 75cc/hr, infusing well at 75cc/hr at L FA, on IV antibiotics. Assisted in ADLs. Falls bundle in place. Pt seen and examined by Dr Perez this AM, IVF discontinued as ordered. Pt has been complaining that she lost her 2 address books, checked pt's room, cabinets and drawers- none; checked admission history- none documented- explained to pt, pt still looking and insisting for it to be found. Pt also complained that she lost her partial dentures- checked pt's room as well- none; as per admission history and OR checklist- there is none documented. No complaints of pain made during assessment. To continue monitoring patient.
[2020-05-30 15:20] VITALS: BP 138/63
[2020-05-30 20:44] VITALS: BP 105/83
[2020-05-31 05:38] LABS: HEMATOCRIT 27.9 % (37.0-47.0); HEMOGLOBIN 9.1 gm/dL (12.0-15.0); MCH 30.5 pg (26.0-34.0); MCHC 32.8 g/dL (28.0-37.0); MCV 92.9 fL (80.0-100.0); RDW 15.8 % (10.5-14.5); WBC 11.9 thou/uL (4.0-11.0)
--- NOTE | 2020-05-31 12:00 | HC ---
[facility] [address] [facility] [place] [address] CONSULTATION Name: BERYL ESCAMILLA Room #: 463-P ADM IN M.R.#: [id number] Admission: 05/28/20 Attend Phys: Jennifer Perez Discharge: Date of : 52 Report #: [id number] THIS REPORT FOR: cc: OLIVIA - No family physician/PCP OLIVIA - No family physician/PCP Brandon Wu MD ~ CC: OLIVIA physician/PCP Jennifer Perez DATE OF SERVICE: 05/28/2020 WOUND CARE CONSULTATION NOTE REASON FOR CONSULTATION: Infection with cellulitis of left below knee amputation site, requiring surgical revision. HISTORY OF PRESENT ILLNESS: The patient is a 69-year-old woman with diabetes mellitus and recent history of upper GI bleed, who recently undergone left below knee amputation. She was admitted with cellulitis of the left leg and wound disruption at the below knee amputation site with an infection. She was taken to the operating room yesterday by Dr. Tank Aguila for debridement and revision of the below knee amputation site. This was done in the operating room yesterday and was noted that the left below knee amputation site was infected with dehiscence. Wound was incised, drained, debrided and revised. The patient now has a dressed wound with a stabilizer, was seen this morning by members of the Orthopedic Team who wished to leave the dressing on today. PAST MEDICAL HISTORY: Recent upper gastrointestinal bleeding, atrial fibrillation, recent history of gangrene toe of the left foot in the setting of diabetes, diabetes mellitus type 2. ALLERGIES: No known drug allergies. MEDICATIONS: Currently include; Lovenox, Zofran, labetalol, Toradol, gabapentin, acetaminophen, Tradjenta, metoprolol, metformin, vancomycin, Zosyn, Lipitor, Ambien, and hydrocodone. PHYSICAL EXAMINATION: GENERAL: Shows a well woman, eating her lunch, sitting up in bed. HEENT: Mucous membranes are moist. NECK: Supple. ABDOMEN: Soft. LUNGS: Respirations unlabored. EXTREMITIES: Examination of the extremities shows a well dressed, left below knee amputation revision site. Wound has an Abebe dressing. There was no strike through of the wound dressing and knee immobilizer is in place. [address] [address] CONSULTATION Name: BERYL ESCAMILLA Room #: 463-P ADM IN .R.#: [id number] Admission: 05/28/20 Attend Phys: Jennifer Perez Discharge: Date of : 52 Report #: [id number] IMPRESSION: Infected left below knee amputation site with wound dehiscence, postoperative day #1. Operative incision, drainage, debridement and revision by Dr. Aguila. PLAN: Per the Orthopedic Team, we will leave dressing on today. Likely change dressing tomorrow and wound care team will follow. <ELECTRONICALLY SIGNED> By: Brandon Wu MD 05/31/20 1200 1257 1308 Brandon Wu MD /joshua
--- NOTE | 2020-05-31 16:46 | NUR ---
Assumed patient care at 0715. LSCTA, Vital signs WNL's, ABD soft and non-tender, BS x's 4. Patient was given Morphine per IV push late afternoon for level "six" right foot pain. Pain reduced to a level "four." Patient is max assist x's 2 with turning, changing. She is incontinent of bowel and bladder. Patient was given Miralax this am; this was effective, as she had a bowel movement late this afternoon. IV in right arm infiltrated just after shift change. New IV in left forearm. She is tolerating IV Antibiotic Therapy well. No new concerns. Will continue to monitor.
[2020-05-31 17:58] VITALS: BP 168/82
[2020-05-31 20:09] VITALS: BP 145/64
[2020-06-01 08:00] VITALS: BP 151/55
[2020-06-01 08:56] VITALS: BP 151/55
[2020-06-01] MEDS ORDERED: HYDROCODON-ACE1 EAC7 PO (10:29)
[2020-06-01] MEDS ORDERED: AUGMENTIN 875-1 EACH PO (10:29)
--- NOTE | 2020-06-01 14:37 | NUR ---
PT ADMITTED RELATED TO INFECTED LBKA. PT HAD DISCHARGED 05/05 TO [facility], CAME BACK 05/22 AND RETURNED TO [facility], ADMITTED 05/28. CM CALLED AND SPOKE WITH PT'S BROTHER/NADER BUENO AND HE INDICATED THAT PLAN IS FOR PT TO RETURN TO [facility] TO RESUME SKILLED REHAB STATUS POST L BKA. PT IS AWARE AND AGREEABLE. CM CALLED [facility] IN ADMISSIONS AND SENT REFERRAL. CARE TEAM INDICATED THAT PT IS MEDICALLY STABLE TO DC THIS DAY THIS WAS ALSO CONVEYED TO [facility]. CM TO FOLLOW INDICATED WITH DC PLANNING.
--- NOTE | 2020-06-01 16:31 | NUR ---
CARE TEAM INDICATED THAT PT IS MEDICALLY STABLE TO DC TO [facility] THIS DAY. CHART COPY ORDERED. ORDERS WILL NEED TO BE FAXXED TO ONCE COMPLETED. PT AND DPOA/BROTHER ARE AWARE AND AGREEABLE. FAN TRANSPORT ARRANGED FOR 1800. NO OTHER CM INTERVENTION INDICATED. CASE CLOSED.
--- NOTE | 2020-06-01 18:34 | NUR ---
Assumed patient care at 0715. Vital signs stable, LSCTA, abdomen soft and non-tender, BS x's 4. Patient's woundcare completed, picture taken and placed in chart. Patient was given Hydrocodone po x's 1 for "level five pain" in left lower extremity; medication effective. Patient Discharged at 1620 back to [facility] via Medical Transport Van. Patient did not get two of her IV Antibiotics, as the van came appproximately 1 /12 hours early without warning. IV was pulled out, then van left because they did not want to wait. Patient did not want another IV put in.
== END 2020-06-01 18:40 | DRG 463 ==
LOC: ER 14:00 → 4W 19:29
PROVIDERS: Emergency Medicine; ADMIT Hospitalist; ATTEND Hospitalist
PROC: 0JBP0ZZ Excision of Left Lower Leg Subcutaneous Tissue and Fascia, Open Approach (ICD-10-PCS; principal; 2020-05-29)
DX: T87.81 Dehiscence of amputation stump (principal); E43 Unspecified severe protein-calorie malnutrition; L03.116 Cellulitis of left lower limb; E44.0 Moderate protein-calorie malnutrition; N17.9 Acute kidney failure, unspecified; T87.44 Infection of amputation stump, left lower extremity; E11.65 Type 2 diabetes mellitus with hyperglycemia; E11.22 Type 2 diabetes mellitus with diabetic chronic kidney disease; I12.9 Hypertensive chronic kidney disease with stage 1 through stage 4 chronic kidney disease, or unspecified chronic kidney disease; F03.90 Unspecified dementia, unspecified severity, without behavioral disturbance, psychotic disturbance, mood disturbance, and anxiety; N18.9 Chronic kidney disease, unspecified; Y83.5 Amputation of limb(s) as the cause of abnormal reaction of the patient, or of later complication, without mention of misadventure at the time of the procedure; Y92.89 Other specified places as the place of occurrence of the external cause; Z68.28 Body mass index [BMI] 28.0-28.9, adult; Z89.512 Acquired absence of left leg below knee; Z79.84 Long term (current) use of oral hypoglycemic drugs; Z79.899 Other long term (current) drug therapy; Z79.82 Long term (current) use of aspirin; Z87.891 Personal history of nicotine dependence; Z03.818 Encounter for observation for suspected exposure to other biological agents ruled out
CPT/HCPCS: 10047; 50010; 50101; 50386; 53078; 56525; 57091; 57103; 57180; 62110; 62900; 70005

== ENCOUNTER → 2020-07-10 | Outpatient (CLI) | payer OTHER, BC ==
[~2020-07-10] MED LIST changes: +AUGMENTIN 875-1 EACH PO
== END ==
LOC: HYPER 10:00
PROVIDERS: ATTEND Emergency Medicine Emergency Medical Services
DX: T87.89 Other complications of amputation stump (principal); E11.621 Type 2 diabetes mellitus with foot ulcer; L97.525 Non-pressure chronic ulcer of other part of left foot with muscle involvement without evidence of necrosis; E11.52 Type 2 diabetes mellitus with diabetic peripheral angiopathy with gangrene; I96 Gangrene, not elsewhere classified; E11.40 Type 2 diabetes mellitus with diabetic neuropathy, unspecified; L84 Corns and callosities; E11.69 Type 2 diabetes mellitus with other specified complication; I25.10 Atherosclerotic heart disease of native coronary artery without angina pectoris; K21.9 Gastro-esophageal reflux disease without esophagitis; I10 Essential (primary) hypertension; E78.5 Hyperlipidemia, unspecified; M19.90 Unspecified osteoarthritis, unspecified site; F17.200 Nicotine dependence, unspecified, uncomplicated; Z79.84 Long term (current) use of oral hypoglycemic drugs; Z85.828 Personal history of other malignant neoplasm of skin; Z90.49 Acquired absence of other specified parts of digestive tract; Y83.5 Amputation of limb(s) as the cause of abnormal reaction of the patient, or of later complication, without mention of misadventure at the time of the procedure

== ENCOUNTER → 2020-08-31 | Outpatient (CLI) | payer OTHER, BC | LOC: HYPER 09:47 | PROVIDERS: ATTEND Emergency Medicine Emergency Medical Services | DX: T87.81 Dehiscence of amputation stump (principal); E11.622 Type 2 diabetes mellitus with other skin ulcer; L97.822 Non-pressure chronic ulcer of other part of left lower leg with fat layer exposed; L84 Corns and callosities; E11.52 Type 2 diabetes mellitus with diabetic peripheral angiopathy with gangrene; I96 Gangrene, not elsewhere classified; E78.5 Hyperlipidemia, unspecified; I25.10 Atherosclerotic heart disease of native coronary artery without angina pectoris; I10 Essential (primary) hypertension; K21.9 Gastro-esophageal reflux disease without esophagitis; M19.90 Unspecified osteoarthritis, unspecified site; F17.200 Nicotine dependence, unspecified, uncomplicated; Z79.84 Long term (current) use of oral hypoglycemic drugs; Y83.5 Amputation of limb(s) as the cause of abnormal reaction of the patient, or of later complication, without mention of misadventure at the time of the procedure ==

== ENCOUNTER → 2020-09-14 | Outpatient (CLI) | payer OTHER, BC | LOC: HYPER 09:37 | PROVIDERS: ATTEND Emergency Medicine Emergency Medical Services | DX: T87.81 Dehiscence of amputation stump (principal); E11.622 Type 2 diabetes mellitus with other skin ulcer; L97.822 Non-pressure chronic ulcer of other part of left lower leg with fat layer exposed; E11.51 Type 2 diabetes mellitus with diabetic peripheral angiopathy without gangrene; E11.40 Type 2 diabetes mellitus with diabetic neuropathy, unspecified; L84 Corns and callosities; I25.10 Atherosclerotic heart disease of native coronary artery without angina pectoris; K21.9 Gastro-esophageal reflux disease without esophagitis; I10 Essential (primary) hypertension; E78.5 Hyperlipidemia, unspecified; M19.90 Unspecified osteoarthritis, unspecified site; F17.290 Nicotine dependence, other tobacco product, uncomplicated; Z79.4 Long term (current) use of insulin; Z79.82 Long term (current) use of aspirin; Z89.412 Acquired absence of left great toe; Z89.422 Acquired absence of other left toe(s); Y83.5 Amputation of limb(s) as the cause of abnormal reaction of the patient, or of later complication, without mention of misadventure at the time of the procedure ==

== ENCOUNTER → 2020-10-05 | Outpatient (CLI) | payer OTHER, BC | LOC: HYPER 09:14 | PROVIDERS: ATTEND Emergency Medicine Emergency Medical Services | DX: T87.81 Dehiscence of amputation stump (principal); L84 Corns and callosities; E11.52 Type 2 diabetes mellitus with diabetic peripheral angiopathy with gangrene; I96 Gangrene, not elsewhere classified; E66.9 Obesity, unspecified; E78.5 Hyperlipidemia, unspecified; I25.10 Atherosclerotic heart disease of native coronary artery without angina pectoris; I10 Essential (primary) hypertension; K21.9 Gastro-esophageal reflux disease without esophagitis; F17.200 Nicotine dependence, unspecified, uncomplicated; M19.90 Unspecified osteoarthritis, unspecified site; Z68.28 Body mass index [BMI] 28.0-28.9, adult; Z79.84 Long term (current) use of oral hypoglycemic drugs; Y83.5 Amputation of limb(s) as the cause of abnormal reaction of the patient, or of later complication, without mention of misadventure at the time of the procedure ==

== ENCOUNTER → 2020-10-26 | Outpatient (CLI) | payer OTHER, BC | LOC: HYPER 09:10 | PROVIDERS: ATTEND Emergency Medicine Emergency Medical Services | DX: T87.44 Infection of amputation stump, left lower extremity (principal); L84 Corns and callosities; E11.52 Type 2 diabetes mellitus with diabetic peripheral angiopathy with gangrene; I96 Gangrene, not elsewhere classified; E11.22 Type 2 diabetes mellitus with diabetic chronic kidney disease; I12.9 Hypertensive chronic kidney disease with stage 1 through stage 4 chronic kidney disease, or unspecified chronic kidney disease; N18.9 Chronic kidney disease, unspecified; E11.69 Type 2 diabetes mellitus with other specified complication; M86.172 Other acute osteomyelitis, left ankle and foot; E46 Unspecified protein-calorie malnutrition; E66.9 Obesity, unspecified; E78.5 Hyperlipidemia, unspecified; I10 Essential (primary) hypertension; I25.119 Atherosclerotic heart disease of native coronary artery with unspecified angina pectoris; I48.91 Unspecified atrial fibrillation; R27.8 Other lack of coordination; R41.9 Unspecified symptoms and signs involving cognitive functions and awareness; R41.841 Cognitive communication deficit; K21.9 Gastro-esophageal reflux disease without esophagitis; M19.90 Unspecified osteoarthritis, unspecified site; F02.80 Dementia in other diseases classified elsewhere, unspecified severity, without behavioral disturbance, psychotic disturbance, mood disturbance, and anxiety; F17.200 Nicotine dependence, unspecified, uncomplicated; Z68.28 Body mass index [BMI] 28.0-28.9, adult; Z79.84 Long term (current) use of oral hypoglycemic drugs; Y83.5 Amputation of limb(s) as the cause of abnormal reaction of the patient, or of later complication, without mention of misadventure at the time of the procedure ==

== ENCOUNTER → 2020-11-16 | Outpatient (CLI) | payer OTHER, BC | LOC: HYPER 09:11 | PROVIDERS: ATTEND Emergency Medicine Emergency Medical Services | DX: T87.44 Infection of amputation stump, left lower extremity (principal); E11.69 Type 2 diabetes mellitus with other specified complication; M86.172 Other acute osteomyelitis, left ankle and foot; E46 Unspecified protein-calorie malnutrition; L84 Corns and callosities; R41.9 Unspecified symptoms and signs involving cognitive functions and awareness; R27.8 Other lack of coordination; I25.119 Atherosclerotic heart disease of native coronary artery with unspecified angina pectoris; E11.52 Type 2 diabetes mellitus with diabetic peripheral angiopathy with gangrene; I96 Gangrene, not elsewhere classified; I48.91 Unspecified atrial fibrillation; E11.22 Type 2 diabetes mellitus with diabetic chronic kidney disease; I12.9 Hypertensive chronic kidney disease with stage 1 through stage 4 chronic kidney disease, or unspecified chronic kidney disease; N18.9 Chronic kidney disease, unspecified; K21.9 Gastro-esophageal reflux disease without esophagitis; E78.5 Hyperlipidemia, unspecified; M19.90 Unspecified osteoarthritis, unspecified site; F02.80 Dementia in other diseases classified elsewhere, unspecified severity, without behavioral disturbance, psychotic disturbance, mood disturbance, and anxiety; F17.290 Nicotine dependence, other tobacco product, uncomplicated; Z68.28 Body mass index [BMI] 28.0-28.9, adult; Z79.84 Long term (current) use of oral hypoglycemic drugs; Z89.412 Acquired absence of left great toe; Z89.422 Acquired absence of other left toe(s); Y83.5 Amputation of limb(s) as the cause of abnormal reaction of the patient, or of later complication, without mention of misadventure at the time of the procedure ==